=== PATIENT | female | born 1950 | race Caucasian/White ===

== ENCOUNTER 2019-01-19 13:13 | Inpatient (IN) ==
[2019-01-19] MEDS ORDERED: ROCEPHIN 1 GM in NS 50 ML IV ONE (13:35)
[2019-01-19] MEDS ORDERED: NS 500 ML IV ONE (13:36)
[2019-01-19] MEDS ORDERED: NS 1,000 ML IV ONE ×2 (13:36)
--- NOTE | 2019-01-19 13:51 | Diag Imaging Result Doc PS360 ---
EXAM: CHEST-1 VIEW 01/19/2019 HISTORY: productive cough TECHNIQUE: AP portable upright at 1340 COMMENT: The inspiration is less optimal than on 08/27/2016. There is some platelike opacity in the lingula which was not previously present. Otherwise are has been no significant change. IMPRESSION: Minimal lingular atelectasis. Electronically signed by Shyam Gant 01/19/2019 1:48 PM
[2019-01-19 14:01] LABS: INR 1.28; PROTIME 16.2 Seconds (11.0-16.0)
[2019-01-19 14:02] LABS: BASO# 0.02 X1000 (0.0-0.2); BASO% 0.1 % (0.0-0.8); EOS# 0.05 X1000 (0.0-0.7); EOS% 0.2 % (0.0-10.0); HEMATOCRIT 34.9 % (37.0-47.0); HEMOGLOBIN 11.6 g/dL (12.0-16.0); IMM GRAN# 0.84 X1000 (0.0-0.04); IMM GRAN% 2.7 % (0.0-0.5); LYMPH# 0.93 X1000 (1.2-3.4); MCH 29.1 PG (27-31); MCHC 33.2 g/dL (33-37); MCV 87.5 FL (81-99); MONO# 1.06 X1000 (0.11-0.59); MONO% 3.4 % (1.7-9.3); MPV 12.4 FL (7.4-10.4); NEUT# 28.52 X1000 (1.4-6.5); NEUT% 90.6 % (42.2-75.2); PLT 153 X1000 (130-400); PTT 27.4 Seconds (22.3-41.8); RBC 3.99 XMIL (4.2-5.4); RDW 14.3 % (11.5-14.5); WBC 31.42 X1000 (4.8-10.8)
[2019-01-19 14:12] LABS: ALB/GLOB RATIO 1.5; CALCIUM 7.3 mg/dL (8.8-10.2); CREATININE 4.8 mg/dL (0.5-0.9); POTASSIUM 3.5 mmol/L (3.5-5.1); TOTAL BILIRUBIN 0.56 mg/dL (0.20-1.00)
[2019-01-19 14:40] LABS: BANDS 3 % (0-1); LYMPHS 4 % (21-51); MONO 1 % (1-9); SEGS 92 % (42-75)
[2019-01-19] MEDS: LEVOPHED 8 MG in D5 1/2 NS 250 ML IV SCH (14:50)
--- NOTE | 2019-01-19 16:14 | Diag Imaging Result Doc PS360 ---
EXAM: CT THORAX W/O CONTRAST 01/19/2019 HISTORY: pna, septic shock TECHNIQUE: This exam was performed using automated exposure control, adjustment of mA or kV according to patient size, and/or use of iterative reconstruction technique. COMMENT: There are no previous studies available for comparison. There is mild groundglass opacity in the mid left upper lobe on image 32. There are platelike opacities in the lingula and the posterior lower lobes with denser consolidation in the posterior costophrenic sulcus of the left lower lobe. There is a similar but less extensive opacity on the right side. There are no abnormal fluid collections. There is a large hiatal hernia. There is an apparent cyst on image 98 and the right hepatic lobe. There are spondylotic changes in the thoracic and lumbar spine. There has been cholecystectomy. There is no definite evidence of acute disease in the visualized portion of the abdomen. IMPRESSION: Bibasilar atelectasis versus pneumonia. Hiatal hernia. Electronically signed by Shyam Gant 01/19/2019 4:11 PM
[2019-01-19] MEDS ORDERED: ZOFRAN IV PRN (16:15)
[2019-01-19] MEDS ORDERED: DUONEB (A & A) INH PRN (16:15)
[2019-01-19 16:18] LABS: AGAP 25; BUN 67 mg/dL (8-22); CALCIUM 7.3 mg/dL (8.8-10.2); CHLORIDE 84 mmol/L (98-107); COSMO 270; GLUCOSE 114 mg/dL (70-104); POTASSIUM 3.4 mmol/L (3.5-5.1); SODIUM 124 mmol/L (136-145); TCO2 15 mmol/L (25-35)
[2019-01-19 16:19] LABS: CREATININE 4.9 mg/dL (0.5-0.9)
[2019-01-19] MEDS: MERREM 500 MG in NS 50 ML IV SCH (16:51)
[2019-01-19] MEDS: NS 1,000 ML IV SCH (16:51)
[2019-01-19] MEDS: NORCO-7.5 PO PRN (17:00)
--- NOTE | 2019-01-19 17:03 | EKG Report ---
Test Performed on : 01/19/2019 1:33:49 PM Test Reason : ED. NO EKG ORDER FOR MUSE Blood Pressure : / mmHG Vent. Rate : 093 BPM Atrial Rate : 093 BPM P-R Int : 128 ms QRS Dur : 094 ms QT Int : 390 ms P-R-T Axes : 024 -39 030 degrees QTc Int : 484 ms Normal sinus rhythm. Left axis deviation Minimal voltage criteria for LVH, may be normal variant Abnormal ECG When compared with ECG of 27-AUG-2016 11:03, premature ventricular complexes. are no longer present T wave amplitude has decreased in Anterolateral leads Unconfirmed Result
[2019-01-19] MEDS ORDERED: TEFLARO 300 MG in NS 250 ML IV SCH (17:30)
--- NOTE | 2019-01-19 17:58 | HISTORY AND PHYSICAL ---
CHIEF COMPLAINT: Fever, cough, and weakness. HISTORY OF PRESENT ILLNESS: Ms. Montoya is a 68-year-old female who carries a past medical history of hypertension, asthma, COPD, GERD, arthritis, and gout, who reports that for the past week she has seen her primary care physician and her nurse emergency for workup for pneumonia. She has been treated with Cipro. She recently had a chest CT as well as an echo. Workup in her family care provider's office today. X-ray showed pneumonia with a high white count. She was sent to the ED. She was found to be extremely hypotensive and initiated on the sepsis protocol, started on broad-spectrum antibiotics. Initial chest x-ray here shows atelectasis. However, her white count is 31. Sodium was 122, acute renal failure with a BUN of 69 and creatinine of 4.8. She was hypotensive and initiated on Levophed after 3 L bolus. Surprisingly, her lactate level is negative. We will continue with the sepsis protocol, broad-spectrum antibiotics, and aggressive IV hydration. Patient appears to be severely dehydrated. Per family at bedside, she has only taken maybe in a full Gatorade the whole week and half of a half of a peanut butter sandwich, and a couple of sips of chicken noodle soup. She has been admitted to the ICU, and is going to continue on Levophed drip and broad-spectrum antibiotics. PAST MEDICAL HISTORY: 1. Hypertension. 2. Asthma. 3. COPD. 4. Gastroesophageal reflux disease. 5. Arthritis. 6. Gout. PAST SURGICAL HISTORY: 1. Partial hysterectomy with ovaries removed. 2. Appendectomy. SOCIAL HISTORY: She is retired. She is a . She has 2 children. No alcohol, tobacco, or illicit drug use. She had her asthma and COPD from secondhand smoke. Her father was a smoker as well as her . ALLERGIES: To Augmentin causes nausea and vomiting. HOME MEDICATIONS: 1. Ventolin inhaler. 2. Fosamax. 3. Allopurinol. 4. Abilify. 5. Atorvastatin and calcium. 6. Celecoxib. 7. Advair Diskus. 8. Trelegy. 9. Monopril. 10. Lasix. 11. Gabapentin. 12. Guaifenesin. 13. Singulair. 14. Potassium. 15. Zoloft. 16. Theophylline. 17. Vistaril. 18. Triamterene. 19. Hydrochlorothiazide. PHYSICAL EXAMINATION: VITAL SIGNS: Temperature 97.3 degrees, heart rate 85, respirations 21, blood pressure is 98/57 and O2 is 99%. GENERAL: Ms. Montoya is an ill-appearing 68-year-old female who is lying on the stretcher in the ER in Trendelenburg. HEENT: Atraumatic, normocephalic. PERRL. NECK: Supple. Trachea midline. Mucous membranes are extremely dry. CV: S1-S2 appreciated. No murmurs, gallops, or rubs noted. RESPIRATORY: Lung sounds relatively clear/ she is bilaterally decreased in the bases. GI: Abdomen is flat, soft, nontender, and nondistended. Positive bowel sounds 4 quadrants. EXTREMITIES: Lower extremities with trace edema. NEUROLOGIC: No focal deficits noted. LABORATORY DATA: White count 31, hemoglobin and hematocrit 11 and 34, and platelet count 153,000. Chemistry: Sodium 122, potassium 3.5, BUN 69, creatinine 4.8, blood glucose is 131, AST 33, alkaline phosphatase 128, and plasma lactate 1.6. Repeat BMP after 3 L bolus. Sodium was 124, potassium 3.4, BUN 67, and creatinine 4.9. DIAGNOSTIC DATA: Chest CT bibasilar atelectasis versus pneumonia. Hiatal hernia. ASSESSMENT AND PLAN: 1. Sepsis rule in for pneumonia. We will continue with aggressive IV hydration. Follow the sepsis protocol. Broad-spectrum antibiotics, aggressive pulmonary toilet, and bronchodilators. We will continue on Levophed for hypotension. Blood pressures were in the 50s/30s to 70s/40s. 2. Failed outpatient treatment for pneumonia, see #1. The patient was being treated outpatient with Cipro for pneumonia. 3. Hypertension. We will hold any antihypertensive. Patient has a Levophed drip. 4. COPD asthma from secondhand smoke. The patient was never a smoker, however, her father and were both smokers. We will continue with bronchodilators. 5. Arthritis. 6. Gout. 7. Acute renal failure secondary to dehydration. The patient did have a CT with contrast this past week. We will continue with aggressive IV hydration. Recheck her renal function in the morning. Consult Dr. Lee if needed in as well as renal ultrasound if needed if no improvement. 8. Hyponatremia. We will continue to trend, probably secondary to dehydration. 9. Mild hypokalemia. Continue to monitor. 10. Further recommendations to follow physician evaluation, laboratory and diagnostic data. Dictated by COURTNEY Smith for Alvin Guzman MD Addendum: Patient seen and examined by myself. Agree with CYCLE REPAIRER note. It reflects my assessment and plan. Patient is being admitted to hospital for septic shock secondary to pneumonia so will start IV fluids and broad spectrum antibiotics and monitor patient in ICU. cc: Alvin Guzman MD Zz Unknown MTDD
[2019-01-19] MEDS: DUONEB (A & A) INH SCH ×3 (19:44→23:13)
[2019-01-19 20:41] LABS: URINE SOURCE CATH
[2019-01-19 20:43] LABS: BILIRUBIN URINE NEGATIVE (NEGATIVE); BLOOD URINE MODERATE (NEGATIVE); COLOR ORANGE; GLUCOSE URINE NEGATIVE (NEGATIVE); KETONE URINE NEGATIVE (NEGATIVE); LEUKOCYTES URINE LARGE (NEGATIVE); NITRITE URINE NEGATIVE (NEGATIVE); PH URINE 6.5; PROTEIN URINE 200 mg/dL (NEGATIVE); SP GRAVITY URINE 1.009; TURBIDITY URINE TURBID (CLEAR); UROBILINOGEN URINE NORMAL (NORMAL)
[2019-01-19 20:46] LABS: UR EPITHELIAL CELLS <10 /HPF (<10); URINE BACTERIA NEGATIVE /HPF; URINE RBC 20-40 /HPF (<10); URINE WBC TNTC /HPF (<10)
[2019-01-19 20:52] LABS: URINE YEAST NONE SEEN
[2019-01-19 20:53] LABS: URINE CASTS NONE SEEN
[2019-01-20] MEDS: NS 1,000 ML IV SCH ×4 (00:45→19:53)
[2019-01-20] MEDS: MERREM 500 MG in NS 50 ML IV SCH (00:47)
[2019-01-20] MEDS: LEVOPHED 8 MG in D5 1/2 NS 250 ML IV SCH ×3 (02:21→22:25)
[2019-01-20] MEDS: DUONEB (A & A) INH SCH ×6 (03:35→23:13)
[2019-01-20 06:33] LABS: BASO# 0.02 X1000 (0.0-0.2); BASO% 0.1 % (0.0-0.8); EOS# 0.07 X1000 (0.0-0.7); EOS% 0.2 % (0.0-10.0); HEMATOCRIT 33.9 % (37.0-47.0); HEMOGLOBIN 11.4 g/dL (12.0-16.0); IMM GRAN# 0.63 X1000 (0.0-0.04); IMM GRAN% 1.7 % (0.0-0.5); LYMPH# 0.75 X1000 (1.2-3.4); MCH 29.5 PG (27-31); MCHC 33.6 g/dL (33-37); MCV 87.6 FL (81-99); MONO# 1.69 X1000 (0.11-0.59); MONO% 4.5 % (1.7-9.3); MPV 11.6 FL (7.4-10.4); NEUT% 91.5 % (42.2-75.2); PLT 179 X1000 (130-400); RBC 3.87 XMIL (4.2-5.4); RDW 14.7 % (11.5-14.5); WBC 37.96 X1000 (4.8-10.8)
[2019-01-20 06:58] LABS: ALB/GLOB RATIO 1.1; ALBUMIN 2.6 g/dL (3.5-5.0); CREATININE 4.4 mg/dL (0.5-0.9); POTASSIUM 3.2 mmol/L (3.5-5.1); TOTAL BILIRUBIN 0.41 mg/dL (0.20-1.00)
--- NOTE | 2019-01-20 07:22 | Diag Imaging Result Doc PS360 ---
EXAM: CHEST-PORTABLE INDICATION: Pneumonia TECHNIQUE: One view COMPARISON: 01/19/2019 FINDINGS: Lung volumes are low. There is increased atelectasis at the left lower lung zone. No other new consolidation is identified. Cardiac silhouette is stable. IMPRESSION: Lower lung volumes and increased atelectasis at the left lower lung zone. Electronically signed by Nasir Monroy 01/20/2019 7:19 AM
--- NOTE | 2019-01-20 07:43 | CONSULTATION ---
DATE OF CONSULTATION: 01/20/2019 CONCLUSION: The patient has a gram-negative rowena bacteremia. This may have originated from a pneumonia or from a urinary tract infection. RECOMMENDATIONS: I am going to discontinue ceftaroline and meropenem and place the patient on cefepime, the dose of which will be modified because of the patient's renal failure. DISCUSSION: The patient is unable provide a history. No family member is present. According to the information in the computer, the patient was admitted to the hospital with fever, cough, and weakness. Her CBC shows a white count of 37,960, hemoglobin 11.4, and platelet count 179,000. Creatinine is 4.4. GFR is 10. Alkaline phosphatase is 149. The urinalysis showed white cells but no bacteria. Blood cultures are growing gram-negative rowena. CT scan of the chest shows bibasilar pneumonia versus atelectasis. Urine culture is pending. REVIEW OF SYSTEMS: Unable to be obtained from the patient. PAST MEDICAL HISTORY: Positive for hypertension, asthma, COPD, gastroesophageal reflux disease, arthritis, and gout. PAST SURGICAL HISTORY: Positive for hysterectomy and oophorectomy, and appendectomy. SOCIAL HISTORY: The patient is a . She has 2 children. She does not drink alcoholic beverages smoke tobacco, or use illicit drugs. It is felt that the patient has asthma and COPD due to secondhand smoke. Both her father and her were smokers. ALLERGIES: Drug adverse reaction is to Augmentin. It causes nausea and vomiting. HOME MEDICATIONS: Include Ventolin inhaler, Fosamax, allopurinol, Abilify, atorvastatin, celecoxib, Advair Diskus, Trelegy, Monopril, Lasix, gabapentin, Singulair, Zoloft, theophylline, Vistaril, triamterene, and hydrochlorothiazide. PHYSICAL EXAMINATION: Vital Signs: Temperature is 99 degrees, pulse 99, respirations 17, blood pressure is 107/55. The patient is 5 feet 4 inches tall and weighs 204 pounds. General: This is an ill-appearing, elderly female. She is in no acute distress. Head, Eyes, Ears, Nose, and Throat: She can hear my spoken words and see near objects. She does not have any white coating on her tongue. Neck: No meningismus. Lungs: Clear to auscultation. Cardiovascular: Heart rate is regular. Abdomen: Soft and not tender. Neurologic: The patient is awake. She did follow requests to move her extremities but when I asked her a question, I could not understand what she was saying in response. The patient does not have a tremor. Extremities: No erythema. Thank you for the consult. ADDENDUM: I just found information from the hospital that sent the patient to our hospital. The patient had a ESBL producing E. coli. I discontinued cefepime and started ertapenem the dose of which was modified because of the patient's renal failure. cc: Kyle Alvarez MD MTDD
--- NOTE | 2019-01-20 07:53 | INFECTIOUS DISEASE CONSULT REP ---
DATE: 01/20/2019 ADDENDUM: I just have found some information about the patient at [facility] where she was prior to coming to [facility]. Her urine grew out greater than 100,000 colony-forming units of an extended spectrum beta lactamase producing E coli. It was susceptible to imipenem. I have started the patient on ertapenem. The dose has been modified because of the patient's renal failure. cc: Kyle Alvarez MD
[2019-01-20] MEDS: INVANZ 0.5 GM in NS 50 ML IV SCH (08:20)
[2019-01-20] MEDS: NORCO-7.5 PO PRN (09:21)
--- NOTE | 2019-01-20 09:41 | PROGRESS NOTE ---
DATE: 01/20/2019 SUBJECTIVE: Patient reports feeling fine. According to nursing staff, she continues to require some vasopressors. No other issues noted. OBJECTIVE: Vital Signs: Temperature 98.5 degrees, heart rate 92, respiratory 19, blood pressure 108/60, O2 saturation 95% on 4 L nasal cannula. General: This is a chronically ill-appearing, 68-year-old female, lying in bed, in no acute distress. Cardiovascular: S1, S2 heard. No murmurs, gallops, or rubs. Regular rate and rhythm. Respiratory: Minimal coarse breath sounds noted in both pulmonary bases. Patient is not using any accessory muscles or having work of breathing. Abdomen: Soft. Nontender to palpation. Bowel sounds present. No organomegaly. No signs of peritoneal irritation. Extremities: Mild lower extremity edema. Neurological: Patient is alert and oriented x3. Moves 4 extremities. LABORATORY DATA: White cell count 37.96, hemoglobin 11.4, hematocrit 33.9, platelets 179,000. Sodium 124, potassium 3.2, creatinine 4.4, calcium 7.0. In's and outs indicate urine output of 1625 mL of urine. ASSESSMENT AND PLAN: 1. Septic shock secondary to pneumonia and extended-spectrum beta-lactamase Escherichia coli urinary tract infection. The patient continues to require Levophed, in this case 17 mcg. Initial report from blood cultures indicate gram-negative bacteremia. Previous records from [facility] indicated that she had a urine culture positive for Escherichia coli, extended-spectrum beta-lactamase positive. We have consulted Dr. Alvarez from Infectious Disease. Antibiotics have been changed to ertapenem, renally dosed. We will continue to monitor. 2. Bilateral pneumonia. We will continue with current antibiotic treatment and breathing treatments as well. 3. Hypertension. Of course, all blood pressure medication has been held. We will continue to monitor. 4. Chronic obstructive pulmonary disease/asthma from secondhand smoke. We will continue with DuoNeb. 5. Arthritis, gout. Stable. We will provide pain medication as needed. 6. Acute kidney injury. At this point, this could be multifactorial. The patient is responding to IV fluids. She had a renal function that was normal from a couple years ago. Urine output is okay. We will continue to monitor. 7. Hyponatremia, most likely secondary to dehydration, also some sort of acute tubular necrosis, but in any case, we will continue to monitor BMP daily. 8. Disposition. We will continue to monitor this patient closely in the intensive care unit. cc: Alvin Guzman MD
--- NOTE | 2019-01-20 09:52 | Diag Imaging Result Doc PS360 ---
EXAM: US ABDOMEN-COMPLETE INDICATION: phylicia, gram negative bacteremia COMPARISON: None. FINDINGS: There has been a prior cholecystectomy. The common bile duct is normal in diameter. The liver is grossly unremarkable. Portal venous flow is hepatopetal. The pancreas is partially obscured by bowel gas. The visualized portion is unremarkable. The aorta and IVC are partially obscured. Visualized portions are essentially unremarkable. The spleen is unremarkable. The kidneys are grossly unremarkable. IMPRESSION: Essentially unremarkable abdominal ultrasound. Electronically signed by Nasir Monroy 01/20/2019 9:50 AM
[2019-01-20] MEDS ORDERED: TYLENOL PR PRN (21:37)
[2019-01-21] MEDS: NS 1,000 ML IV SCH ×4 (01:13→20:49)
[2019-01-21] MEDS: DUONEB (A & A) INH SCH ×6 (03:51→23:30)
[2019-01-21 06:01] LABS: BASO# 0.02 X1000 (0.0-0.2); BASO% 0.1 % (0.0-0.8); EOS# 0.04 X1000 (0.0-0.7); EOS% 0.2 % (0.0-10.0); HEMATOCRIT 33.6 % (37.0-47.0); HEMOGLOBIN 11.3 g/dL (12.0-16.0); IMM GRAN# 0.29 X1000 (0.0-0.04); IMM GRAN% 1.1 % (0.0-0.5); LYMPH# 1.06 X1000 (1.2-3.4); LYMPH% 4.1 % (20.5-51.1); MCH 29.4 PG (27-31); MCHC 33.6 g/dL (33-37); MCV 87.5 FL (81-99); MONO# 1.43 X1000 (0.11-0.59); MONO% 5.5 % (1.7-9.3); MPV 11.2 FL (7.4-10.4); NEUT# 23.13 X1000 (1.4-6.5); PLT 180 X1000 (130-400); RBC 3.84 XMIL (4.2-5.4); RDW 14.6 % (11.5-14.5); WBC 25.97 X1000 (4.8-10.8)
[2019-01-21 06:21] LABS: ALBUMIN 1.9 g/dL (3.5-5.0); CALCIUM 7.1 mg/dL (8.8-10.2); CREATININE 3.8 mg/dL (0.5-0.9); PHOSPHORUS 3.7 mg/dL (2.7-4.5); POTASSIUM 3.3 mmol/L (3.5-5.1)
[2019-01-21 07:16] LABS: LYMPHS 6 % (21-51); MONO 2 % (1-9); SEGS 90 % (42-75)
[2019-01-21] MEDS ORDERED: CALCIUM GLUCONATE 2 GM in NS 100 ML IV ONE (07:47)
[2019-01-21] MEDS: INVANZ 0.5 GM in NS 50 ML IV SCH (08:51)
[2019-01-21] MEDS: POTASSIUM CHLORIDE 20 MEQ/SWI 20 MEQ/100 ML IVPB IV SCH ×2 (08:52→11:31)
[2019-01-21] MEDS: CALTRATE 600 + D PO SCH ×2 (09:15→20:49)
[2019-01-21] MEDS: LEVOPHED 8 MG in D5 1/2 NS 250 ML IV SCH (09:43)
--- NOTE | 2019-01-21 10:44 | PROGRESS NOTE ---
DATE: 01/21/2019 SUBJECTIVE: The patient reports feeling fine. According to nursing staff, patient continues to require Levophed but definitely less amount of this medication. No other issues noted. As per nursing staff overnight, patient reports feeling okay, eating okay as well. OBJECTIVE: Vital Signs: Temperature 97.3 degrees, heart rate 85, respiratory rate 16, blood pressure 122/86, O2 saturation 100% 2 L nasal cannula. General: This is a chronically ill- appearing, 68-year-old female lying in bed, in no acute distress. Cardiovascular: S1, S2 heard. No murmurs, gallops, or rubs. Regular rate and rhythm. Respiratory: Minimal coarse breath sounds noted in both pulmonary bases. Patient not using any accessory muscles or having work of breathing. Abdomen: Soft, nontender to palpation. Bowel sounds present. No organomegaly. No signs of peritoneal irritation. Extremities: Mild lower extremity edema. Neurological: Patient alert and oriented x3. Moves all 4 extremities. LABORATORY DATA: White cell count 25.97, hemoglobin 11.3, hematocrit 33.6, platelets 180,000. Sodium 134, potassium 3.3, chloride 102, bicarbonate 14, calcium 7.1. ASSESSMENT AND PLAN: 1. Septic shock secondary to pneumonia and extended spectrum beta-lactamase Escherichia coli urinary tract infection/bacteremia. Patient continues to require Levophed at this point at 70 marked mcg per minute. At this point, the blood culture is still pending, indicates gram- negative bacteremia and also gram-negative rods in the urine. As we mentioned before, because previous records from [facility] indicate that the patient has a urine culture positive for extended spectrum beta-lactamase Escherichia coli, she is receiving ertapenem as per Dr. Kyle Alvarez' recommendation. We will continue to check CBC. Actually, there is an improvement from 30,000 white cell count yesterday to 25,000 today. We will continue to monitor this patient closely in the intensive care unit. 2. Bilateral pneumonia. We will continue with the current antibiotic coverage as well as DuoNeb breathing treatments every 4 hours as scheduled. 3. Hypertension. Of course, this patient is in septic shock and all blood pressure medication has been held. 4. Chronic obstructive pulmonary disease/asthma for secondary hand smoke. Will continue with DuoNeb every 4 hours. 5. Arthritis and gout, stable. Will provide pain medication as needed. 6. Acute kidney injury with metabolic acidosis, multifactorial. Patient is responding to IV fluids. The creatinine is getting better. Yesterday, it was 4.4 and today is 3.8. We will continue to monitor. 7. Hyponatremia, almost resolved. We will continue to monitor. DISPOSITION: We will continue to monitor this patient closely in the intensive care unit. cc: Alvin Guzman MD
--- NOTE | 2019-01-21 18:48 | INFECTIOUS DISEASE PROGRESS NO ---
DATE: 01/21/2019 PRESENT ILLNESS: The patient has an extended spectrum beta lactamase producing Escherichia coli urinary tract infection and an associated bacteremia. MEDICATIONS: The patient is on ertapenem 500 mg IV daily. The dose has been decreased because of the patient's renal failure. PHYSICAL EXAMINATION: Vital Signs: Temperature earlier was 102, it is 98 now, pulse 87, respirations 18, blood pressure 113/57. General: This is an ill-appearing elderly female. She is very lethargic. Head/eyes/ears/nose/throat: No drainage noted from the nose or ears. Neck: No pain with movement. Lungs: Clear to auscultation. Cardiovascular: Regular heart rate. Abdomen: Abdomen and flanks soft and nontender. Neurologic: The patient is lethargic. She did not follow request to move her extremities LAB AND X-RAY: The patient's abdominal ultrasound was unremarkable. The patient's urine and blood are growing extended spectrum beta lactamase producing Escherichia coli. The patient's creatinine is 3.8. GFR is 12. CBC shows a white count of 25,970, hemoglobin 11.3, and platelet count of a 188,000. ASSESSMENT AND PLAN: The patient has an extended spectrum beta lactamase producing Escherichia coli urinary tract infection and an associated bacteremia. My plan is to treat the patient for a total of 14 days with ertapenem in a reduced dose because of the patient's renal failure. Day #1 will be the first day that the patient's repeat blood cultures are sterile. I plan on repeating the patient's blood cultures today. COMORBIDITIES: The patient is elderly. She has gastroesophageal reflux disease, and chronic obstructive pulmonary disease, asthma, and gout. cc: Kyle Alvarez MD
[2019-01-22] MEDS: NS 1,000 ML IV SCH ×4 (02:06→19:24)
[2019-01-22] MEDS: DUONEB (A & A) INH SCH ×6 (03:52→23:30)
[2019-01-22 06:43] LABS: BASO# 0.02 X1000 (0.0-0.2); BASO% 0.1 % (0.0-0.8); EOS# 0.08 X1000 (0.0-0.7); EOS% 0.5 % (0.0-10.0); HEMATOCRIT 26.8 % (37.0-47.0); HEMOGLOBIN 8.8 g/dL (12.0-16.0); IMM GRAN# 0.17 X1000 (0.0-0.04); IMM GRAN% 1.1 % (0.0-0.5); LYMPH# 1.03 X1000 (1.2-3.4); LYMPH% 6.8 % (20.5-51.1); MCH 28.9 PG (27-31); MCHC 32.8 g/dL (33-37); MCV 87.9 FL (81-99); MONO# 0.66 X1000 (0.11-0.59); MONO% 4.4 % (1.7-9.3); MPV 10.3 FL (7.4-10.4); NEUT% 87.1 % (42.2-75.2); PLT 174 X1000 (130-400); RBC 3.05 XMIL (4.2-5.4); WBC 15.06 X1000 (4.8-10.8)
[2019-01-22 06:48] LABS: ALBUMIN 1.9 g/dL (3.5-5.0); CALCIUM 7.4 mg/dL (8.8-10.2); CREATININE 2.9 mg/dL (0.5-0.9); PHOSPHORUS 4.3 mg/dL (2.7-4.5); POTASSIUM 3.2 mmol/L (3.5-5.1)
[2019-01-22 07:04] LABS: LYMPHS 12 % (21-51); MONO 6 % (1-9); SEGS 80 % (42-75)
[2019-01-22] MEDS: INVANZ 0.5 GM in NS 50 ML IV SCH (07:46)
[2019-01-22] MEDS ORDERED: CALCIUM GLUCONATE 2 GM in NS 100 ML IV ONE (08:00)
[2019-01-22] MEDS: POTASSIUM CHLORIDE 20 MEQ/SWI 20 MEQ/100 ML IVPB IV SCH ×2 (08:19→10:30)
--- NOTE | 2019-01-22 08:26 | PROGRESS NOTE ---
DATE: 01/22/2019 SUBJECTIVE: Patient reports feeling fine. According to nursing staff, the patient is not requiring any vasopressors at this point. Clinically, this patient is feeling better. OBJECTIVE: Vital Signs: Temperature 97.9 degrees, heart rate 102, respiratory rate 20, blood pressure 108/69, O2 saturation 98% 3 L nasal cannula. General Examination: This is a chronically ill-appearing, 68-year-old female lying in bed, in no acute distress. Cardiovascular exam: S1, S2 heard. Tachycardic but no murmurs, gallops, or rubs. Regular rate and rhythm. Respiratory: Coarse breath sounds still noted in both pulmonary bases. Patient not using any accessory muscles or having work of breathing. Abdomen: Soft. Nontender to palpation. Bowel sounds present. No organomegaly. Extremities: No clubbing, cyanosis. Mild lower extremity edema. Neurological: Patient alert and oriented x3. Moves 4 extremities. LABORATORY DATA: White cell count 15.06, hemoglobin 8.9, hematocrit 26.0, platelets 174,000 with BMP that shows potassium 3.2, sodium 130, calcium 7.4. ASSESSMENT AND PLAN: 1. Septic shock secondary to pneumonia/ ESBL E. coli urinary tract infection/bacteremia. The patient fortunately is not requiring any more vasopressors. Not spiking any fever. Her white cell count is getting better at 15,000. At this point, we will continue with ertapenem as per ID recommendations. We will continue to monitor. 2. Bilateral pneumonia. We will continue with DuoNeb every 4 hours and current antibiotic coverage. 3. Hypertension. All antihypertensive medication has been held. We will continue to monitor. 4. Chronic obstructive pulmonary disease. Slight asthma for secondhand smoke. We will continue with DuoNeb every 4 hours as scheduled. 5. Arthritis and gout, stable. We will continue with pain medications as needed. 6. Acute kidney injury with metabolic acidosis. Renal function continues to improve. Of course, bicarbonate is still low. She continues to improve. 7. Electrolyte derangement. We will replete potassium and calcium today. 8. Disposition. We are going to transfer this patient to [facility] today. cc: Alvin Guzman MD [facility]
[2019-01-22] MEDS: CALTRATE 600 + D PO SCH ×3 (10:32→20:05)
[2019-01-22] MEDS: NORCO-7.5 PO PRN (19:23)
[2019-01-23] MEDS: NS 1,000 ML IV SCH ×3 (01:51→17:23)
[2019-01-23] MEDS: DUONEB (A & A) INH SCH ×6 (03:18→23:18)
[2019-01-23 06:20] LABS: BASO# 0.01 X1000 (0.0-0.2); BASO% 0.1 % (0.0-0.8); EOS# 0.13 X1000 (0.0-0.7); EOS% 1.2 % (0.0-10.0); HEMATOCRIT 27.8 % (37.0-47.0); IMM GRAN# 0.15 X1000 (0.0-0.04); IMM GRAN% 1.4 % (0.0-0.5); LYMPH# 1.06 X1000 (1.2-3.4); LYMPH% 9.9 % (20.5-51.1); MCH 28.8 PG (27-31); MCHC 32.4 g/dL (33-37); MCV 88.8 FL (81-99); MONO# 0.52 X1000 (0.11-0.59); MONO% 4.9 % (1.7-9.3); MPV 9.9 FL (7.4-10.4); NEUT# 8.85 X1000 (1.4-6.5); NEUT% 82.5 % (42.2-75.2); PLT 211 X1000 (130-400); RBC 3.13 XMIL (4.2-5.4); RDW 15.5 % (11.5-14.5); WBC 10.72 X1000 (4.8-10.8)
[2019-01-23 06:49] LABS: ALBUMIN 2.2 g/dL (3.5-5.0); CALCIUM 8.6 mg/dL (8.8-10.2); CREATININE 2.1 mg/dL (0.5-0.9); PHOSPHORUS 5.6 mg/dL (2.7-4.5); POTASSIUM 3.7 mmol/L (3.5-5.1)
--- NOTE | 2019-01-23 07:37 | PROGRESS NOTE ---
DATE: 01/23/2019 SUBJECTIVE: The patient reports feeling weak but not spiking any fever. Definitely feeling much better in comparing with admission. No acute issues noted as per nursing staff overnight. OBJECTIVE: Vital Signs: Temperature 97.5 degrees, heart rate 94, respiratory rate 24, blood pressure 117/59, O2 saturation 99% on 3 L nasal cannula. General Examination: This is a chronically ill-appearing, 68-year-old, female lying in bed, in no acute distress. Cardiovascular Examination: S1 and S2 heard. No murmurs, gallops, or rubs. Regular rate and rhythm. Respiratory Examination: Minimal coarse sounds noted in both pulmonary bases. Patient is not using any accessory muscles or having work of breathing. Abdomen: Soft. Nontender to palpation. Bowel sounds present. No organomegaly. Extremities: No clubbing, cyanosis. Mild lower extremity edema noted. Neurological Examination: The patient is alert and oriented x3. Moves 4 extremities. Laboratory Data: White cell count is 10.72, hemoglobin 9.0, hematocrit 27.8, platelets 211,000. BMP remarkable for a creatinine of 2.1, with carbon dioxide 16, calcium 8.6, phosphorus 5.6. ASSESSMENT AND PLAN: 1. Septic shock secondary to bilateral pneumonia/extended-spectrum B-lactamase Escherichia coli bacteremia. Clinically, this patient is feeling better. Not spiking any more fever. Not requiring any vasopressors. White cell count is back to normal. At this point, we will continue with ertapenem as per infectious disease recommendations. 2. Bilateral pneumonia. Patient is on DuoNeb every 4 hours scheduled and also ertapenem as well. We will continue with the same management. 3. Hypertension. Of course, all the antihypertensive medication has been held because of the septic shock. Her vitals indicate blood pressure between 100s-110 so I do not think we need to restart any medication yet. 4. Chronic obstructive pulmonary disease and also secondary asthma secondary to secondhand smoke. We will continue with DuoNeb every 4 hours as scheduled. 5. Arthritis and gout, stable. We will continue with pain medication as needed. 6. Acute kidney injury, metabolic acidosis. Renal function continues to improve. Today, the creatinine is 2.1. We will continue to monitor. 7. Electrolyte derangements. We will continue to check, to replenish calcium. Potassium is normal today. 8. Disposition. I think this patient is stable today so we are going to send her to a regular room today. cc: Alvin Guzman MD
[2019-01-23] MEDS: CALTRATE 600 + D PO SCH ×2 (08:55→20:42)
[2019-01-23] MEDS: INVANZ 0.5 GM in NS 50 ML IV SCH (08:56)
[2019-01-23] MEDS: NORCO-7.5 PO PRN (20:42)
[2019-01-24] MEDS: NS 1,000 ML IV SCH ×3 (01:17→17:51)
[2019-01-24] MEDS: DUONEB (A & A) INH SCH ×6 (02:50→23:05)
[2019-01-24 06:03] LABS: BASO# 0.01 X1000 (0.0-0.2); BASO% 0.1 % (0.0-0.8); EOS# 0.14 X1000 (0.0-0.7); EOS% 1.6 % (0.0-10.0); HEMATOCRIT 28.2 % (37.0-47.0); HEMOGLOBIN 9.1 g/dL (12.0-16.0); IMM GRAN# 0.13 X1000 (0.0-0.04); IMM GRAN% 1.5 % (0.0-0.5); LYMPH# 1.26 X1000 (1.2-3.4); LYMPH% 14.1 % (20.5-51.1); MCHC 32.3 g/dL (33-37); MCV 89.8 FL (81-99); MONO# 0.41 X1000 (0.11-0.59); MONO% 4.6 % (1.7-9.3); MPV 9.6 FL (7.4-10.4); NEUT% 78.1 % (42.2-75.2); PLT 201 X1000 (130-400); RBC 3.14 XMIL (4.2-5.4); RDW 15.4 % (11.5-14.5); WBC 8.95 X1000 (4.8-10.8)
[2019-01-24 06:26] LABS: ALBUMIN 2.2 g/dL (3.5-5.0); CALCIUM 8.2 mg/dL (8.8-10.2); CREATININE 1.5 mg/dL (0.5-0.9); PHOSPHORUS 4.8 mg/dL (2.7-4.5); POTASSIUM 3.5 mmol/L (3.5-5.1)
[2019-01-24] MEDS: CALTRATE 600 + D PO SCH ×2 (08:36→20:09)
[2019-01-24] MEDS: INVANZ 0.5 GM in NS 50 ML IV SCH (08:36)
--- NOTE | 2019-01-24 15:02 | INFECTIOUS DISEASE PROGRESS NO ---
DATE: 01/24/2019 PRESENT ILLNESS: Patient has an extended spectrum beta lactamase producing Escherichia coli urinary tract infection with an associated bacteremia. MEDICATIONS: The patient is on ertapenem at a dose of 500 mg IV daily. PHYSICAL EXAMINATION: Vital Signs: Temperature is 98.4 degrees, pulse 95, respirations 20, blood pressure 129/65. General: This is an ill-appearing elderly female. She is lethargic but she did actually get up and walk a little bit today. Head/eyes/ears/nose/throat: She can hear my spoken words and see near objects. There was no white coating of her tongue. Neck: No pain with movement. Lungs: Clear to auscultation. Cardiovascular: Regular heart rate. Abdomen: Soft and nontender. Neurologic: As mentioned above. Earlier the patient stood up and walked. LAB AND X-RAY: There is no new radiographic study. CBC shows a white count of 8950, hemoglobin 9.1, platelet count 201,000. Creatinine is up to 1.5, and the GFR is 35. The patient's repeated blood cultures drawn on January 22 are both sterile. ASSESSMENT AND PLAN: Patient has an extended spectrum beta lactamase producing Escherichia coli urinary tract infection and bacteremia. Since the patient's kidney function is recovering, I am increasing the dose of ertapenem from 0.5 g to 1 g IV daily starting today. This will be day 2 of treatment with ertapenem with day 1 being the first day that the patient's blood cultures are negative. My plan is to treat the patient for a total of 14 days. She has 2 days done now and therefore she will need 12 more days. The dose of ertapenem has been increased to 1 g IV daily because of the increase in the GFR and decrease in the creatinine. COMORBIDITIES: The patient is elderly. She has gastroesophageal reflux disease, chronic obstructive pulmonary disease, asthma, and gout. cc: Kyle Alvarez MD
--- NOTE | 2019-01-24 16:57 | PROGRESS NOTE ---
DATE: 01/24/2019 SUBJECTIVE: Patient has no major complaints. She seems very weak and tired to me though but her family said she did fairly well with physical therapy a lot better than they anticipated but they are looking at rehab options. OBJECTIVE: Blood pressure 129/65, heart rate of 95, respiratory rate 20, temperature 98.4 degrees.Cardiovascular: Regular rate and rhythm. Pulmonary: Bilateral breath sounds clear auscultation. GI: Soft, nontender, nondistended. Bowel sounds are positive. LABORATORY DATA: White count 8, hemoglobin and hematocrit 9 and 28, platelets 201,000. Creatinine is down to 1.5. PROBLEM LIST: 1. Sepsis due to extended spectrum beta-lactamase Escherichia coli in pneumonia and blood. Plan is for 2 weeks of IV antibiotics. Her negative blood culture date is the day 1. 2. Bilateral pneumonia. She is on Invanz and duo nebs and all that kind of stuff. 3. Chronic obstructive pulmonary disease appears to be stable. Will continue treatment. 4. Acute kidney injury. Continues to improve so I think she probably still needs a little bit of fluid. I am just going to tone it down a bit because just for concerns over volume overload. DISPOSITION: She is going to need a PICC line. She is going to need IV antibiotics at rehab for 2 weeks and social work is working on this based on note here and we will continue with PT and continue to follow. cc: Galo Craft MD
[2019-01-24 17:52] LABS: INR 1.18; PROTIME 15.2 Seconds (11.0-16.0)
[2019-01-24] MEDS: NORCO-7.5 PO PRN (19:04)
[2019-01-24] MEDS ORDERED: INVANZ 1 GM/NS 1 GM/50 ML IVPB IV ONE (20:00)
[2019-01-24] MEDS ORDERED: INVANZ 1 GM/NS 1 GM/50 ML IVPB IV SCH (20:00)
[2019-01-25] MEDS: DUONEB (A & A) INH SCH ×3 (04:57→11:37)
[2019-01-25 05:51] LABS: BASO# 0.01 X1000 (0.0-0.2); BASO% 0.1 % (0.0-0.8); EOS# 0.17 X1000 (0.0-0.7); EOS% 1.9 % (0.0-10.0); HEMOGLOBIN 9.2 g/dL (12.0-16.0); IMM GRAN# 0.14 X1000 (0.0-0.04); IMM GRAN% 1.6 % (0.0-0.5); LYMPH# 1.28 X1000 (1.2-3.4); LYMPH% 14.6 % (20.5-51.1); MCH 28.5 PG (27-31); MCHC 31.7 g/dL (33-37); MCV 89.8 FL (81-99); MONO% 3.4 % (1.7-9.3); MPV 10.2 FL (7.4-10.4); NEUT# 6.85 X1000 (1.4-6.5); NEUT% 78.4 % (42.2-75.2); PLT 216 X1000 (130-400); RBC 3.23 XMIL (4.2-5.4); RDW 15.2 % (11.5-14.5); WBC 8.75 X1000 (4.8-10.8)
[2019-01-25 06:04] LABS: ALBUMIN 2.3 g/dL (3.5-5.0); CALCIUM 8.1 mg/dL (8.8-10.2); CREATININE 1.2 mg/dL (0.5-0.9); POTASSIUM 3.9 mmol/L (3.5-5.1)
[2019-01-25] MEDS: NS 1,000 ML IV SCH (08:14)
[2019-01-25] MEDS: CALTRATE 600 + D PO SCH (08:15)
[2019-01-25] MEDS ORDERED: NS 250 ML ONE (08:36)
--- NOTE | 2019-01-25 11:20 | DISCHARGE SUMMARY ---
ADMISSION DATE: 01/19/2019 DISCHARGE DATE: 01/25/2019 ADMISSION DIAGNOSES: 1. Sepsis, rule in pneumonia. 2. Failed outpatient treatment for pneumonia. 3. Hypertension. 4. Chronic obstructive pulmonary disease due to secondhand smoke and asthma. No exacerbation. 5. Arthritis. 6. Gout. 7. Acute kidney injury secondary to dehydration. 8. Hyponatremia. 9. Hypokalemia. DISCHARGE DIAGNOSES: 1. Sepsis due to extended-spectrum B-lactamase positive Escherichia coli urinary tract infection and extended-spectrum B-lactamase positive bacteremia. 2. Failed outpatient treatment for pneumonia. 3. Extended-spectrum B-lactamase positive bacteremia. 4. Chronic obstructive pulmonary disease, no exacerbation. 5. Acute kidney injury, resolved. 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 2. Dr. Alvarez with infectious disease. SURGERIES/PROCEDURES: Will have PICC line placement prior to discharge. HOSPITAL COURSE: Ms. Agustina Montoya is a 68-year-old, female with a medical history of hypertension, asthma, COPD, GERD, arthritis, gout. 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 Apparently, she was treated outpatient with Cipro. Was seen in her PCP's office with x-ray show pneumonia, elevated white blood cell count, and was recommended to come to the emergency department. She was hypotensive with a blood pressure of 56/36 and was initiated on a sepsis protocol. Started on broad-spectrum antibiotics and given aggressive IV fluid hydration. Initial chest x-ray shows atelectasis. White count was 31,000. She had a low sodium of 122. Acute kidney injury with a creatinine of 4.8. Despite the 3 L of normal saline bolus, she still had to be started on a Levophed drip as the blood pressure was not responsive. Per family report, she has had decreased p.o. intake for at least a week prior to presentation. Dr. Alvarez with infectious disease was consulted once the blood cultures came back as gram-negative bacteremia. Infectious disease, Dr. Alvarez, consulted after blood cultures showed gram-negative bacteremia and E. coli in the urine as well. Both ended up being ESBL positive. She was transferred to the ICU where she was eventually weaned off vasopressors and continued on her Invanz. Prior to discharge here, she will have a PICC line placed so she can continue on Invanz. Vitals have been stable. DISCHARGE VITAL SIGNS: Temperature 98.8 degrees, heart rate 93, respiratory rate 15, blood pressure 122/69, O2 saturation 99% on 2 L nasal cannula. DISCHARGE LABORATORY DATA: White blood cells 8000, hemoglobin 9, hematocrit 29, platelet count 216,000. Sodium 145, potassium 3.9, BUN 32, creatinine is 1.2, glucose 111, phosphorus is actually 5.0, and albumin is 2.3, calcium 8.1. Blood cultures from 01/19/2019, ESBL positive. Urine culture from a Avila catheter on 01/19/2019 was ESBL positive. Resistant to gentamicin, Levaquin, tobramycin, and Zosyn. Most recent blood cultures on 01/22/2019 are so far negative. They are still pending full growth. PERTINENT IMAGING: On 01/19/2019, chest x-ray, minimal lingular atelectasis. Chest CT without contrast, large hiatal hernia, cyst on the right hepatic lobe of the liver, bibasilar atelectasis versus pneumonia. Chest x-ray on the , lower lung volumes and increased atelectasis in the left lower lung zone. Then, 01/20/2019, abdominal ultrasound essentially unremarkable. EKG on the , normal sinus rhythm, rate of 93, QTc 484. DISCHARGE MEDICATIONS: 1. Invanz 1 g IV daily for 12 days. 2. Norvasc 5 mg p.o. twice daily. 3. [place] 7.5 one tablet p.o. every 6 hours p.r.n. 4. Albuterol inhaler 2 puffs 4 times a day and p.r.n. 5. Triamterene/hydrochlorothiazide 75/50 mg 1 tablet p.o. daily. 6. Trelegy Ellipta 100/62.5/25 one puff inhaled daily. 7. Theophylline 200 mg p.o. daily. 8. Singulair 10 mg p.o. daily. 9. Sertraline 100 mg p.o. daily. 10. Potassium chloride 10 mEq p.o. daily. 11. Neurontin 400 mg p.o. t.i.d. 12. Lasix 20 mg p.o. daily p.r.n. 13. Fosamax 70 mg 1 tablet p.o. as directed. 14. Allopurinol 600 mg p.o. daily. 15. Advair 500/50 one inhalation twice daily. 16. Abilify 2 mg p.o. daily with an additional 2 mg p.o. on top of that every other day, so 2 mg every other day and 4 mg every other day. 17. Trazodone 100 mg p.o. nightly. 18. Atorvastatin calcium 80 mg p.o. nightly. DISCHARGE DIET: Heart healthy. DISCHARGE ACTIVITY: As tolerated with assistance. DISCHARGE PHYSICIAN FOLLOWUP: Primary care provider and automatic machines supervisor, and probably infectious disease, Dr. Alvarez, 02/03/2019 at 0830. The primary care provider is Dr. Sebastian Beckwith. DISCHARGE INSTRUCTIONS: If your condition changes, contact physician and/or return to the emergency department. Changes may include, but are not limited to shortness of breath, increased fatigue, excessive bleeding, unexplained weight loss or gain, unmanageable pain, signs or symptoms of infection. Notify MD for any of the following: Pain or difficulty urinating, blood or pus in the urine, fever greater than 101 or chills, shortness of breath or chest pain, urine that is bloody, cloudy or dark, confusion, blood pressures that remain outside of the desired parameters, rapid heart rate, decreased urination, lower extremity swelling, or weight gain. General instructions include keep all followup appointments, sit up while eating or drinking, sleep in a semiupright position while using pillows to prop up on, continue to use your incentive spirometer 4 times daily for 2 weeks, reposition frequently to avoid any further breakdown to your skin, take all prescribed medications as directed, be sure to complete antibiotics, return to the emergency department immediately for any new or worsening symptoms, drink enough water to keep urine clear to pale yellow. If you do not have a primary care provider, you may call the physician referral number at [phone] to obtain a list of physicians who are taking new patients. DISCHARGE DISPOSITION: [facility] in [place]. Dictated by COURTNEY Martinez for Alvin Guzman MD Addendum: Patient seen and examined by myself. Agree with COURTNEY note. It reflects my assessment and plan. Patient is being discharged in stable condition. Will be sent to rehab in [place]. cc: COURTNEY Martinez MD Samuel Gillespie, MD Leroy F. Alvarez, MD [facility]
[2019-01-25 14:07] VITALS: BP 132/67
[2019-01-25] MEDS: NORCO-7.5 PO PRN (15:04)
== END 2019-01-25 15:30 | DRG 871 ==
LOC: ED 13:13 → ICU 15:44 → SUATTDRO 15:44 → 2N 01-22 12:01
PROVIDERS: ATTEND Internal Medicine

== ENCOUNTER 2019-03-05 13:11 | Inpatient (IN) ==
[2019-03-05] MEDS ORDERED: NS 1,000 ML IV ONE ×2 (13:55→15:12)
--- NOTE | 2019-03-05 14:14 | Diag Imaging Result Doc PS360 ---
EXAM: CHEST-1 VIEW 03/05/2019 HISTORY: COPD exac, recent pna TECHNIQUE: AP portable upright at 1403 COMMENT: The inspiration is better than on 01/20/2019. The atelectasis previously present in the left base has resolved. The left hemidiaphragm is still elevated. IMPRESSION: No evidence of acute disease. Electronically signed by Shyam Gant 03/05/2019 2:12 PM
[2019-03-05 14:35] LABS: ALB/GLOB RATIO 1.4; ALBUMIN 3.4 g/dL (3.5-5.0); BASO# 0.03 X1000 (0.0-0.2); BASO% 0.2 % (0.0-0.8); CALCIUM 8.1 mg/dL (8.8-10.2); CREATININE 2.1 mg/dL (0.5-0.9); EOS# 0.01 X1000 (0.0-0.7); EOS% 0.1 % (0.0-10.0); HEMATOCRIT 36.1 % (37.0-47.0); HEMOGLOBIN 11.7 g/dL (12.0-16.0); IMM GRAN# 0.05 X1000 (0.0-0.04); IMM GRAN% 0.4 % (0.0-0.5); LYMPH# 0.69 X1000 (1.2-3.4); LYMPH% 5.2 % (20.5-51.1); MAGNESIUM 1.6 mg/dL (1.5-2.7); MCH 28.7 PG (27-31); MCHC 32.4 g/dL (33-37); MCV 88.7 FL (81-99); MONO# 0.85 X1000 (0.11-0.59); MONO% 6.3 % (1.7-9.3); MPV 11.2 FL (7.4-10.4); NEUT# 11.76 X1000 (1.4-6.5); NEUT% 87.8 % (42.2-75.2); PLT 154 X1000 (130-400); POTASSIUM 3.4 mmol/L (3.5-5.1); RBC 4.07 XMIL (4.2-5.4); RDW 14.1 % (11.5-14.5); TOTAL BILIRUBIN 1.49 mg/dL (0.20-1.00); TOTAL PROTEIN 5.8 g/dL (6.3-8.3); WBC 13.39 X1000 (4.8-10.8)
[2019-03-05 14:43] LABS: URINE SOURCE CLEAN CATCH
[2019-03-05 14:49] LABS: BILIRUBIN URINE NEGATIVE (NEGATIVE); BLOOD URINE TRACE (NEGATIVE); COLOR YELLOW; GLUCOSE URINE NEGATIVE (NEGATIVE); KETONE URINE NEGATIVE (NEGATIVE); LEUKOCYTES URINE MODERATE (NEGATIVE); NITRITE URINE NEGATIVE (NEGATIVE); PROTEIN URINE 50 mg/dL (NEGATIVE); SP GRAVITY URINE 1.012; TURBIDITY URINE HAZY (CLEAR); UROBILINOGEN URINE 2 mg/dL (NORMAL)
[2019-03-05 14:51] LABS: UR EPITHELIAL CELLS <10 /HPF (<10); URINE BACTERIA NEGATIVE /HPF; URINE WBC 20-40 /HPF (<10)
[2019-03-05] MEDS ORDERED: INVANZ 0.5 GM in NS 50 ML IV ONE (15:11)
[2019-03-05 16:24] LABS: INR 1.19; PROTIME 15.3 Seconds (11.0-16.0)
[2019-03-05 16:25] LABS: PTT 27.6 Seconds (22.3-41.8)
[2019-03-05] MEDS ORDERED: NS 1,000 ML IV SCH ×2 (16:45→23:51)
--- NOTE | 2019-03-05 16:46 | EKG Report ---
Test Performed on : 03/05/2019 1:24:51 PM Test Reason : admission Blood Pressure : / mmHG Vent. Rate : 097 BPM Atrial Rate : 097 BPM P-R Int : 150 ms QRS Dur : 092 ms QT Int : 378 ms P-R-T Axes : 015 -44 009 degrees QTc Int : 480 ms Normal sinus rhythm. Possible Left atrial enlargement Left axis deviation Abnormal ECG When compared with ECG of 19-JAN-2019 13:33, (Unconfirmed) No significant change was found Unconfirmed Result
[2019-03-05] MEDS ORDERED: MAGNESIUM SULFATE 2 GM/S.W.I. 2 GM/50 ML IVPB IV ONE (17:09)
[2019-03-05] MEDS ORDERED: TYLENOL PO PRN (18:27)
[2019-03-05] MEDS ORDERED: ZOFRAN IV PRN (18:27)
[2019-03-05] MEDS ORDERED: KLOR-CON PO ONE (18:27)
--- NOTE | 2019-03-05 19:08 | PROVIDER DOCUMENTATION ---
This chart was entered by Theresa Potts Scribe, acting as scribe for Bruce Morrison MD. HPI-General Adult - General Chief Complaint: B/P Problems Stated Complaint: VOMITING Time Seen by Provider: 03/05/19 13:30 Source: patient, family Allergies/Adverse Reactions: Patient Allergies Allergy/AdvReac Type Severity Reaction Status Date / Time amoxicillin [From Augmentin] AdvReac NAUSEA/VOMI Verified 01/19/19 13:55 TING clavulanic acid AdvReac NAUSEA/VOMI Verified 01/19/19 13:55 [From Augmentin] TING Home Medications: Home Medication List Medication Instructions Recorded Confirmed Last Taken Type Albuterol Sulfate Inhaler 2 puff INH PRN PRN 08/27/16 01/19/19 08/30/16 History [Ventolin Hfa] Allopurinol 2 tab PO DAILY 08/27/16 01/19/19 08/31/16 09:00 History Aripiprazole [Abilify] 2 mg PO EVERY OTHER DAY 08/27/16 01/19/19 08/29/16 History Atorvastatin Calcium 80 mg PO QHS 08/27/16 01/19/19 08/31/16 19:00 History Fluticasone/Salmeterol [Advair 1 each IH BID 08/27/16 01/19/19 08/25/16 History 500-50 Diskus] Gabapentin 400 mg PO TID 08/27/16 01/19/19 08/31/16 09:00 History Potassium Chloride [Klor-Con 10] 10 meq PO DAILY 08/27/16 01/19/19 08/31/16 09:00 History Sertraline HCl 100 mg PO DAILY 08/27/16 01/19/19 08/31/16 09:00 History Theophylline Anhydrous 200 mg PO DAILY 08/27/16 01/19/19 08/31/16 09:00 History [Theophylline] Trazodone [Desyrel] 100 mg PO QHS 08/27/16 01/19/19 08/30/16 History Albuterol Sulfate Inhaler 2 puff INH [id number] 01/19/19 01/19/19 Unknown History [Ventolin Hfa] Alendronate [Fosamax] 1 tab PO DIRECTED 01/19/19 01/19/19 Unknown History Aripiprazole [Abilify] 1 tab PO DAILY 01/19/19 01/19/19 Unknown History Fluticasone/Umeclidin/Vilanter 1 puff INH DAILY 01/19/19 01/19/19 Unknown History [Natali Ellipta 100-62.5-25] Furosemide 20 mg PO DAILY PRN 01/19/19 01/19/19 Unknown History Guaifen/Phenyleph/Acetaminophn 1 ea PO Q6H PRN PRN 01/19/19 01/19/19 Unknown History [Ccp Caffeine Free Tablet] Montelukast [Singulair] 1 tab PO DAILY 01/19/19 01/19/19 Unknown History Triamterene/Hydrochlorothiazid 1 tab PO DAILY 01/19/19 01/19/19 Unknown History [Triamterene-Hctz 75-50 mg Tab] Ertapenem 1 gm/Ns [Invanz 1 gm/Ns] 1 gm .SEE ORDER DAILY #12 ivpb 01/24/19 Unknown Rx Amlodipine [Norvasc] 5 mg PO BID #60 tab 01/25/19 Unknown Rx Hydrocodone/APAP 7.5 mg/325 mg 1 tab PO Q6H PRN PRN #30 tab 01/25/19 Unknown Rx [[place]-7.5] - History of Present Illness -Gen Adult Nature of Presenting Problems: 68 yowf presents to the ed with c/o low BP this am (93/64), generalized fatigue and productive cough. pt sts had n/v earlier in the week but has resolved and cough has been present for 1 month. pt has recently dz with pna and had tx. pt on exam c/o low BP and fatigue Location of Pain/Injury: reports: generalized (fatigue) Quality of Pain: reports: other (fatigue denies pain) Severity: reports: moderate Onset/Duration: reports: this morning Timing: reports: still present (low bp and fatigue) Context/Activities at Onset: reports: light activity Modifying Factors: worse with: coughing, movement Associated Symptoms: reports: cough, fatigue, malaise, nausea, vomiting. denies: chest pain, diarrhea, fever/chills, headaches, shortness of breath Similar Symptoms Previously?: Yes Recently seen or treated by another doctor?: Yes (was recently dc from sp/rehab) Review of Systems - Adult - REVIEW OF SYSTEMS - ADULT Constitutional: reports: see HPI, fatique. denies: chills, fever Eyes: reports: no symptoms reported Ears, Nose, Mouth & Throat: reports: no symptoms reported Cardiovascular: denies: chest pain, palpitations, syncope Respiratory: reports: see HPI, cough. denies: shortness of breath, wheezing Gastrointestinal: reports: see HPI, nausea, vomiting. denies: abdominal pain, diarrhea Genitourinary: reports: no symptoms reported Musculoskeletal: reports: no symptoms reported Integumentary: reports: no symptoms reported Neurological: denies: dizziness/vertigo, headache/migraines Psychiatric: reports: no symptoms reported Endocrine: reports: no symptoms reported Hematologic/Lymphatic: reports: no symptoms reported Allergic/Immunologic: reports: see HPI, asthma All Other Systems: Reviewed and Negative Past History - Adult - PAST MEDICAL HISTORY-ADULT Review of Records: reports: Old Records Reviewed, Nursing Assessment Review, Medications Reviewed, Social history reviewed & non-contributory. Major Childhood Illnesses: reports: denies history Cardiovascular: reports: HTN Respiratory: reports: asthma, COPD, pneumonia Gastrointestinal: reports: denies history Obstetrical/Gynecological: reports: denies history Genitourinary: reports: denies history Musculoskeletal: reports: denies history Neurological: reports: denies history Psychiatric: reports: denies history Endocrine/Immune: reports: denies history Other Conditions: reports: denies history - PRIOR SURGERIES/PROCEDURES Surgical/Procedure History: reports: hysterectomy, tonsillectomy - IMMUNIZATION STATUS Childhood Immunizations: See Nurse Assessment Flu Vaccine: See Nurse Assessment - FAMILY HISTORY Family History: reviewed, not pertinent - SOCIAL HISTORY Smoking: non-smoker Substance Use: denies Living Situation: family Physical Exam-General - PHYSICAL EXAM-ADULT Initial Vital Signs Reviewed: Yes (noted BP) - CONSTITUTIONAL General Appearance: appears well, alert, no apparent distress, obese - EYES Eyes: PERRL/EOMI, pink conjunctivae - HEAD, EARS, NOSE, MOUTH & THROAT HENMT: moist mucous membranes - NECK Neck: non-tender, full range of motion, supple, normal inspection - RESPIRATORY Respiratory: chest non-tender, lungs clear, normal breath sounds, rhonchi (with cough only), other (has productive cough/92% on RA). negative: respiratory distress - CARDIOVASCULAR Cardiovascular: normal peripheral pulses, tachycardia (105) - CHEST (BREASTS) Chest/Breast: deferred - GASTROINTESTINAL (ABDOMEN) Abdominal Exam: normal bowel sounds, non tender, soft - GENITOURINARY Female Genitalia/Pelvic Exam: deferred Rectal Exam: deferred Hemoccult Exam: deferred - MUSCULOSKELETAL Extremity: normal range of motion, normal capillary refill - SKIN Integumentary: normal color, normal turgor, warm/dry - NEUROLOGIC Neurologic: grossly normal - PSYCHIATRIC Psych/Mental Status: normal mood/affect, normal thought content, normal thought process, oriented x 3 Progress - PLAN OF CARE/RESULTS Progress/Plan/Lab Results: Vital Signs - 8 hr 03/05/19 13:13 Temperature 98.7 F Pulse Rate 105 H Respiratory Rate 20 Blood Pressure 87/51 O2 Sat by Pulse Oximetry 95 Orders Category Date Time Status CBC WITH DIFF [HEME] Stat Lab 03/05/19 13:31 Uncollected COMPREHENSIVE METABOLIC PANEL [CHEM] Stat Lab 03/05/19 13:31 Uncollected MAGNESIUM [CHEM] Stat Lab 03/05/19 13:31 Uncollected URINALYSIS W/POSS RFLX CULT [URINALYSIS] Stat Lab 03/05/19 13:31 Uncollected Result Diagrams: 03/05/19 13:56 03/05/19 13:56 - REASSESSMENT Reassessment #1 Time Reassessed: 15:32 Status: unchanged - EKG 1 Time of EKG reading by physician:: 13:24 EKG Read and Signed by:: Bruce Morrison EKG Interpretation (*Must complete 3 of following elements*): Abnormal Rate: 97 Rhythm: nsr [place]: left (deviation) QRS: other (possible left atrial enlargement) ST Wave: normal - XRAY 1 XRAY: Bilateral XRAY Study: Chest Impression: See EMR Report (EXAM: CHEST-1 VIEW 03/05/2019 HISTORY: COPD exac, recent pna TECHNIQUE: AP portable upright at 1403 COMMENT: The inspiration is better than on 01/20/2019. The atelectasis previously present in the left base has resolved. The left hemidiaphragm is still elevated. IMPRESSION: No evidence of acute disease. Electronically signed by Shyam Gant 03/05/2019 2:12 PM 03/05/19 1412 Interpreting Physician: Shyam Gant MD Dict ated Date/Time: 03/05/19 1411 cc: Bruce Morrison MD; Sebastian Beckwith MD) - CONSULTS/PCP/HOSPITALIST Notification #1 *Consult/PCP/Hospitalist*: hospitalist Time Discussed: 16:08 (spoke with gladys) Consult Disposition: Will see in ED, Admit Departure - Departure Date of Disposition Decision: 03/05/19 Time of Disposition Decision: 16:15 DIAGNOSIS: COPD exacerbation, Hypotensive episode Disposition: ADMITTED INPATIENT 09 Certified Medical Emergency: Emergent Condition: Good - Critical Care Note This patient required my direct & personal management of CC.: Yes Total Time (mins): 38 Critical Care Statement: This patient required my direct personal management to treat or rule out processes, the absence of which, could potentiallly result in sudden, clinically significant life or limb threatening deterioration. Attestation - Physician/ ROSALVA Attestation Patient care was provided by Advanced Practice Provider:: No The physician spent face to face time with patient:: Yes Advanced Practice Provider documentation review:: Supervising physician onsite and consulted in the evaluation and care of this patient. The physician did have a face to face encounter with the patient. This chart was documented by the indicated scribe, (Theresa Potts Scribe) and accurately reflects the services I performed and decisions made by me, Bruce Morrison MD, as attested by the provider's signature.
[2019-03-05] MEDS: ZYVOX 600 MG/D5W 600 MG/300 ML IVPB IV SCH (19:27)
[2019-03-05] MEDS: DUONEB (A & A) INH SCH (19:55)
[2019-03-05] MEDS ORDERED: NORCO-7.5 PO PRN (23:32)
[2019-03-06] MEDS: DUONEB (A & A) INH SCH ×5 (03:50→17:29)
[2019-03-06] MEDS: ZYVOX 600 MG/D5W 600 MG/300 ML IVPB IV SCH (05:56)
--- NOTE | 2019-03-06 07:00 | HISTORY AND PHYSICAL ---
PRIMARY CARE PROVIDER: Dr. Beckwith. CHIEF COMPLAINT: Not feeling well. HISTORY OF PRESENT ILLNESS: Ms. Montoya is a 68-year-old, female who carries a past medical history of hypertension, asthma, COPD, GERD, arthritis, and gout, who was recently admitted to our service on 01/19/2019 and discharged on 01/25/2019. At that time, she was admitted for sepsis and pneumonia, and found to have an ESBL Escherichia coli urinary tract infection. She was followed by Dr. Alvarez and discharged to rehab with 12 days' worth of ertapenem. She got out of rehab around the or the . She reports she was doing well up until this last week. She went to see her primary care provider, Dr. Beckwith, the previous Thursday. She had gotten some medication for nausea. They picked it up this and they were also given an antibiotic for which they were unaware of what for, but on Thursday, the patient became weak where she was not able to walk. She was having nausea, vomiting, and chills. The vomiting subsided after . She still just continued to feel bad and have chills. At the urging of her family, she was brought to the ED. Workup in the ED revealed a white count of 13, a sodium of 128, a potassium of 3.4, and acute kidney injury on chronic kidney disease, an elevated troponin, as well as a urinary tract infection. Per patient report, she only remembers receiving one IV antibiotic throughout her rehab stay. However, she could not say for sure. She also reports a decrease in appetite as well as a productive cough for over a month with copious amounts of green sputum but no wheezes. No cardiac type chest pain. No heart palpitations. No abdominal pain. No dysuria. No frequency but foul-smelling dark urine. No diarrhea or dark tarry stools. Initially, she was hypotensive, and hypoxemic. However, after IV fluids, the patient's blood pressure has come up to the 100s. Her O2 saturations are in the mid 90s. She reports that she is feeling better after having IV fluids and was requesting to be discharged home or at least be discharged home in the morning. However, we did discuss that she would need to be treated with IV antibiotics for her urinary tract infection as well as treat her electrolytes, replenish her with IV fluids, and treat her with IV antibiotics for her urinary tract infection, for which she was agreeable. PAST MEDICAL HISTORY: Hypertension, asthma, COPD, GERD, arthritis, and gout. Recent urinary tract infection that was ESBL positive E. coli. PAST SURGICAL HISTORY: Partial hysterectomy with ovaries removed, appendectomy. SOCIAL HISTORY: She is retired. She is a . She has 2 children. No alcohol, tobacco, or illicit drug use. Her asthma and COPD are from secondhand smoke. Her father was a smoker as well as her . ALLERGIES: To Augmentin which causes nausea and vomiting. MEDICATIONS: Home medications are currently being compiled. She did report that some of her medications were changed, that she was taken off her Norvasc and placed on Monopril and Maxzide. REVIEW OF SYSTEMS: Twelve-point review of systems completely negative except for those mentioned in the HPI. PHYSICAL EXAMINATION: VITAL SIGNS: Temperature is 98.7 degrees, heart rate 89, respirations 17, blood pressure was 105/64, O2 is 95% on room air. GENERAL: Ms. Montoya is a 68-year-old, female who is sitting up in the bed, in no acute distress. HEENT: Atraumatic, normocephalic. PERRL. Neck supple. Trachea midline. Mucous membranes are extremely dry. HEART: S1, S2 appreciated. No murmurs, gallops, or rubs noted. RESPIRATORY: Lung sounds clear in all lung infante. GI: Soft, nontender, nondistended. Positive bowel sounds in 4 quadrants. EXTREMITIES: Lower extremities negative for edema. NEUROLOGIC: No focal deficits noted. LABORATORY DATA: White count 13, hemoglobin and hematocrit 11 and 36, platelet count 154,000. Sodium 128, potassium 3.4, BUN 30, creatinine 2.1, blood glucose is 153, calcium 8.1, magnesium 1.6. Total bilirubin 1.49. Troponin 0.278. Albumin 3.4. Urinalysis, RBC 10 to 20, WBC 20 to 40, leukocytes moderate, nitrite negative, urine bacteria negative. ASSESSMENT AND PLAN: 1. Urinary tract infection, probable extended-spectrum B-lactamase Escherichia coli. We are currently awaiting the urine culture. We will continue intravenous antibiotics with ertapenem. We will consult Dr. Kyle Alvarez. The patient has noticed a foul-smelling odor and dark urine. 2. Fluid volume depletion secondary to nausea and vomiting, which has now subsided. We will continue with intravenous fluids. We will check her urine electrolytes. 3. Hypokalemia. We will treat her with oral potassium. 4. Acute kidney injury on probable chronic kidney disease. We will continue with intravenous hydration and check urine studies. 5. Elevated troponin in the setting of acute kidney injury. She does not complain of any chest pain. We will go ahead and get an electrocardiogram and trend 2 more sets of cardiac enzymes. 6. Question persistent pneumonia versus bronchitis. The patient reports that for over a month, she has had a persistent cough and has been spitting up copious amounts of green sputum. We will add Zyvox to her regimen, given her kidney function. 7. Hypotension, resolved with intravenous fluids. 8. Hypoxemic on arrival. That is resolved. We will add supplemental oxygen if needed. 9. Hypertension. We will hold any antihypertensive for now. 10. Asthma and chronic obstructive pulmonary disease. She does not appear to be in an asthma exacerbation. However, we will continue with bronchodilators and aggressive pulmonary toilet. 11. Further recommendations to follow physician evaluation, laboratory and diagnostic data. Dictated by COURTNEY Smith for Chelita Morales MD cc: MD Sebastian Sutton MD I performed a face to face encounter on the patient. I reviewed all labs and imaging on the patient. I agree with the H&P as dictated. [facility]
--- NOTE | 2019-03-06 07:28 | Diag Imaging Result Doc PS360 ---
EXAM: CHEST-PORTABLE 03/06/2019 HISTORY: dyspnea TECHNIQUE: AP portable upright at 0551 COMMENT: The lungs are not as well-expanded as on 03/05/2019. There is some platelike atelectasis in the left lower lobe. IMPRESSION: Poor inspiration. Atelectasis. Electronically signed by Shyam Gant 03/06/2019 7:26 AM
[2019-03-06 07:59] LABS: BASO# 0.01 X1000 (0.0-0.2); BASO% 0.1 % (0.0-0.8); EOS# 0.02 X1000 (0.0-0.7); EOS% 0.2 % (0.0-10.0); HEMATOCRIT 30.1 % (37.0-47.0); HEMOGLOBIN 9.6 g/dL (12.0-16.0); IMM GRAN# 0.04 X1000 (0.0-0.04); IMM GRAN% 0.3 % (0.0-0.5); LYMPH# 0.75 X1000 (1.2-3.4); LYMPH% 6.5 % (20.5-51.1); MCH 28.8 PG (27-31); MCHC 31.9 g/dL (33-37); MCV 90.4 FL (81-99); MONO# 0.64 X1000 (0.11-0.59); MONO% 5.5 % (1.7-9.3); NEUT# 10.14 X1000 (1.4-6.5); NEUT% 87.4 % (42.2-75.2); PLT 127 X1000 (130-400); RBC 3.33 XMIL (4.2-5.4); RDW 14.2 % (11.5-14.5)
[2019-03-06 08:49] LABS: LYMPHS 7 % (21-51); MONO 6 % (1-9); SEGS 87 % (42-75)
[2019-03-06 08:50] LABS: ANISOCYTOSIS 1+
[2019-03-06 08:51] LABS: ALBUMIN 2.8 g/dL (3.5-5.0); CALCIUM 7.1 mg/dL (8.8-10.2); CREATININE 2.3 mg/dL (0.5-0.9); MAGNESIUM 2.2 mg/dL (1.5-2.7); POTASSIUM 3.6 mmol/L (3.5-5.1); TOTAL BILIRUBIN 0.94 mg/dL (0.20-1.00); TOTAL PROTEIN 4.2 g/dL (6.3-8.3)
[2019-03-06] MEDS: NEURONTIN PO SCH ×3 (09:32→21:39)
[2019-03-06] MEDS: MERREM 1 GM in NS 50 ML IV SCH ×2 (09:33→21:39)
[2019-03-06] MEDS: SINGULAIR PO SCH (09:33)
[2019-03-06] MEDS: ZOLOFT PO SCH (09:33)
[2019-03-06] MEDS ORDERED: NS 1,000 ML IV SCH (14:32)
--- NOTE | 2019-03-06 14:37 | INFECTIOUS DISEASE PROGRESS NO ---
DATE: 03/06/2019 PRESENT ILLNESS: The patient is readmitted to the hospital with a gram-negative rowena bacteremia. I think that this most likely has originated from a recurrence of her recent extended spectrum beta lactamase producing E coli urinary tract infection. MEDICATIONS: The patient is on ertapenem in a reduced dose because of the patient's end-stage renal disease. PHYSICAL EXAMINATION: Vital Signs: Temperature is 98.8 degrees, pulse 88, respirations 22, blood pressure 84/43. General: This is a ill-appearing elderly female she is in no acute distress. Head/eyes/ears/nose/throat: She can hear my spoken words and see near objects. I did not notice any white coating on her tongue. Neck: No pain with movement. Lungs: Clear to auscultation. Cardiovascular: The heart rate is regular. Abdomen: Soft and nontender. Neurologic: The patient is alert she can move her extremities. She talks in a coherent fashion. There is no tremor. LAB AND X-RAY: Chest x-ray shows some atelectatic changes in the left lower lobe. The blood cultures are growing a gram-negative rowena. Urine culture is pending. Urinalysis had white cells, but no bacteria. Liver function studies are normal. Creatinine is 2.3. GFR is 21. CBC shows a white count of 11,600, hemoglobin 9.6, and platelet count 127,000. ASSESSMENT AND PLAN: It appears that the patient is going to have most likely recurrence of her recent extended spectrum beta lactamase producing Escherichia coli urinary tract infection with an associated bacteremia. My plan is to not use ertapenem which was use before and apparently has not worked in eradicating the infection and instead I am going to put the patient on meropenem in a reduced dose because of the patient's end-stage renal disease. Some of the side effects of meropenem including rash, diarrhea and seizures have been explained to the patient who agrees with treatment. I have ordered a bedside renal ultrasound and also put in there to check for postvoid residual urine. I agree with obtaining an echocardiogram in view of the fact that the patient appears to have a recurrence of the gram-negative rowena bacteremia she had earlier. COMORBIDITIES: The patient is elderly. She also has asthma, chronic obstructive pulmonary disease, gastroesophageal reflux disease. The patient also, as mentioned above, had a recent extended spectrum beta lactamase producing E coli urinary tract infection and bacteremia. cc: Kyle Alvarez MD
[2019-03-06] MEDS ORDERED: INVANZ 0.5 GM in NS 50 ML IV SCH (15:00)
[2019-03-06 16:05] LABS: URINE SOURCE CATH
[2019-03-06 16:14] LABS: BILIRUBIN URINE NEGATIVE (NEGATIVE); BLOOD URINE NEGATIVE (NEGATIVE); COLOR YELLOW; GLUCOSE URINE NEGATIVE (NEGATIVE); KETONE URINE NEGATIVE (NEGATIVE); LEUKOCYTES URINE SMALL (NEGATIVE); NITRITE URINE NEGATIVE (NEGATIVE); PROTEIN URINE 30 mg/dL (NEGATIVE); SP GRAVITY URINE 1.013; TURBIDITY URINE CLEAR (CLEAR); UR EPITHELIAL CELLS <10 /HPF (<10); URINE BACTERIA NEGATIVE /HPF; URINE RBC <10 /HPF (<10); UROBILINOGEN URINE NORMAL (NORMAL)
[2019-03-06 16:37] LABS: UR CREAT RANDOM 95.7 mg/dL (11-20); UR PROT RANDOM 19.7 mg/dL
[2019-03-06] MEDS ORDERED: NS 500 ML IV ONE (17:18)
[2019-03-06] MEDS: DUONEB (A & A) INH PRN (19:37)
[2019-03-06] MEDS ORDERED: HALL'S COUGH LOZENGE MT PRN (19:45)
--- NOTE | 2019-03-06 21:06 | PROGRESS NOTE ---
DATE: 03/06/2019 SUBJECTIVE: The patient is resting comfortably in bed. She states that she feels a lot better today. OBJECTIVE: Vital Signs: Temperature 98.5 degrees, blood pressure 87/47, heart rate 92, respirations 18, O2 saturations 100% on 2 L nasal cannula. General: This is a chronically ill- appearing elderly female lying in bed in no acute distress. Heart: S1, S2 normal. Regular rate and rhythm. Lungs: Equal air entry bilaterally. No wheezing. No rales. No rhonchi. Abdomen: Positive bowel sounds. Soft, nontender, nondistended. Extremities: No edema. No cyanosis. No calf tenderness. Neurologic: The patient is alert and oriented x4. LABS: White blood cell count 11, hemoglobin 9.6, hematocrit 30, platelets 127,000. Sodium 131, potassium 3.6, chloride 94, CO2 19, BUN 30, creatinine 2.3, glucose 145, calcium 7.1. Troponin 0.19. ASSESSMENT AND PLAN: 1. Urinary tract infection. The urine culture is growing gram-negative rods. The patient's prior culture grew out extended spectrum beta-lactamases Escherichia coli. The patient has been switched to Merrem by Dr. Alvarez. 2. Acute kidney injury on chronic kidney disease. The FENa is less than 1. We will continue with IV fluids and monitor for improvement. 3. Situational depression. Continue on Zoloft. 4. Sepsis. Likely secondary to the patient's underlying urinary tract infection. Continue with fluids and antibiotic therapy. 5. Neuropathy. Continue on Neurontin. 6. Anemia. Stable. 7. Deep vein thrombosis prophylaxis. We will start the patient on heparin. cc: Chelita Morales MD [facility]
[2019-03-06] MEDS: HEPARIN SUBQ SCH (21:39)
[2019-03-07] MEDS: NS 1,000 ML IV SCH ×2 (00:21→04:40)
[2019-03-07 07:36] LABS: BASO# 0.02 X1000 (0.0-0.2); BASO% 0.2 % (0.0-0.8); EOS# 0.16 X1000 (0.0-0.7); EOS% 1.9 % (0.0-10.0); HEMATOCRIT 28.1 % (37.0-47.0); IMM GRAN# 0.03 X1000 (0.0-0.04); IMM GRAN% 0.4 % (0.0-0.5); LYMPH# 1.06 X1000 (1.2-3.4); LYMPH% 12.8 % (20.5-51.1); MCH 28.9 PG (27-31); MCV 90.4 FL (81-99); MONO# 0.59 X1000 (0.11-0.59); MONO% 7.1 % (1.7-9.3); MPV 11.5 FL (7.4-10.4); NEUT% 77.6 % (42.2-75.2); PLT 144 X1000 (130-400); RBC 3.11 XMIL (4.2-5.4); RDW 14.5 % (11.5-14.5); WBC 8.26 X1000 (4.8-10.8)
[2019-03-07 08:14] LABS: ALBUMIN 2.4 g/dL (3.5-5.0); CALCIUM 6.9 mg/dL (8.8-10.2); CREATININE 2.3 mg/dL (0.5-0.9); PHOSPHORUS 3.3 mg/dL (2.7-4.5); POTASSIUM 4.1 mmol/L (3.5-5.1)
[2019-03-07] MEDS ORDERED: CALCIUM GLUCONATE 1 GM in NS 50 ML IV ONE (08:32)
--- NOTE | 2019-03-07 08:55 | Diag Imaging Result Doc PS360 ---
EXAM: US RENAL 2 (RETROPER) COMPLETE INDICATION: recurrent UTI TECHNIQUE: COMPARISON: Abdominal ultrasound dated 01/20/2019 FINDINGS: The kidneys are grossly normal in echotexture with no discrete renal mass or hydronephrosis. Right kidney measures 10.8 cm and the left kidney measures 11.3 cm in the greatest longitudinal axes. Right renal cortex measures 1.1 cm and the left renal cortex measures 1.3 cm in thickness. There is a Avila catheter in the urinary bladder. The bladder contains a small amount of urine. The estimated bladder volume is 54.75 cc. The urinary bladder is unremarkable, otherwise. IMPRESSION: Unremarkable renal ultrasound. Electronically signed by Nasir Monroy 03/07/2019 8:53 AM
[2019-03-07] MEDS: HEPARIN SUBQ SCH ×2 (09:17→21:29)
[2019-03-07] MEDS: NEURONTIN PO SCH ×3 (09:17→18:17)
[2019-03-07] MEDS: ABILIFY PO SCH (09:17)
[2019-03-07] MEDS: SINGULAIR PO SCH (09:17)
[2019-03-07] MEDS: ZOLOFT PO SCH (09:17)
[2019-03-07] MEDS: NON-FORMULARY BULK MED INH SCH ×2 (10:52→10:58)
[2019-03-07] MEDS: DUONEB (A & A) INH PRN ×3 (10:52→19:13)
[2019-03-07] MEDS ORDERED: LASIX IV ONE (11:30)
[2019-03-07] MEDS: MERREM 1 GM in NS 50 ML IV SCH ×2 (11:33→21:25)
[2019-03-07] MEDS: COLACE PO SCH ×2 (11:49→21:29)
[2019-03-07] MEDS: MIRALAX PO SCH (11:49)
--- NOTE | 2019-03-07 12:25 | Diag Imaging Result Doc PS360 ---
CHEST-1 VIEW - 03/07/2019 INDICATION: dyspnea COMPARISON: 03/06/2019 FINDINGS: Stable cardiomegaly and pulmonary vascular congestion. Lung volumes remain somewhat low. There is some stable strandy atelectasis in the lung bases. No new infiltrates. No pneumothorax or pleural effusion. IMPRESSION: No change from prior. Electronically signed by Malik Mott 03/07/2019 12:22 PM
--- NOTE | 2019-03-07 15:31 | ECHO REPORT ---
ORDER DATE: 03/05/2019 INTERPRETING PHYSICIAN: Dr. Kendrick Mora ECHOCARDIOGRAPHIC MEASUREMENTS: 1. Interventricular septum 0.9. 2. Left ventricular posterior wall 1.2. 3. Diastolic diameter 4.1. 4. Left atrium 3. 5. Aorta 2.4. SUMMARY OF THE 2-DIMENSIONAL IMAGIN. Mitral valve was normal. There is mitral annular calcification. 2. Tricuspid valve was normal. 3. Aortic valve leaflets were trileaflet. 4. There is mild mitral regurgitation. There is grade 1 diastolic dysfunction. 5. Peak velocity across the aortic valve less than 2 meters/second. There is no aortic stenosis or regurgitation. Normal left ventricular cavity size. Estimated ejection fraction of 65%. There is mild left ventricular hypertrophy. 6. There is trace tricuspid regurgitation. Peak velocity across the tricuspid valve less than 2 meters/second. 7. Anterior echo-free space, history of pericardial fat pad noted. cc: Kendrick Mora MD
--- NOTE | 2019-03-07 20:16 | INFECTIOUS DISEASE PROGRESS NO ---
DATE: 03/07/2019 PRESENT ILLNESS: Ms. Montoya is being treated for a recurrent gram-negative rowena bacteremia which we think will most likely be an extended spectrum beta lactamase producing Escherichia coli as it was on her previous admission. This has already been seen in her urine on this admission. There is also a gram-negative rowena on the Gram stain of the sputum culture. MEDICATIONS: She is receiving meropenem 1 g IV every 12 hours as a renally modified dose. PHYSICAL EXAMINATION: Vital Signs: Temperature is 98.3 degrees, pulse rate 92, respiratory rate 18, blood pressure 101/46, O2 saturation is 96% on 2 L nasal cannula. General: This is an elderly, somewhat ill-appearing female. She is sitting up in a chair currently in no acute distress. HEENT: Atraumatic, normocephalic. Oral mucous membranes are pink and moist. Conjunctiva are pale. Neck: Supple. Trachea is midline. Cardiovascular: Heart rate is regular. S1-S2 noted with a mild systolic murmur. Respiratory: Lung sounds are clear to auscultation bilaterally. Diminished in the bases. She is complaining of a frequent cough. Integumentary: Skin is warm and dry. Neurologic: She is awake, alert, oriented, and able to ambulate with assistance. LABORATORY AND X-RAY: Today, her white count is 8.26, hemoglobin 9, platelet count 144,000. Creatinine is 2.3, GFR is 21. So far on this admission, there is a gram- negative rowena in both blood cultures as well as an ESBL producing Escherichia coli in her urine and gram-negative rowena in her sputum Gram stain. Chest x-ray done today shows no change with pulmonary vascular congestion and strandy atelectasis in the lung bases. Renal ultrasound is unremarkable. ASSESSMENT AND PLAN: Ms. Montoya has a gram-negative rowena bacteremia, which we think will probably be a repeat of her previous extended spectrum beta-lactamase producing Escherichia coli, which started in her urine, with an associated bacteremia. She was previously receiving ertapenem, but has now been changed to meropenem as a renally modified dose, which we will continue at this time. She does have some respiratory complaints which included cough and some shortness of breath. There is no pneumonia seen on chest x-ray at this point, however, we will continue to follow her. For now, we will continue the meropenem as ordered and await the results of the cultures that have been done so far. We will then repeat her culture to obtain a sterile set. These plans have been discussed with and recommended by Dr. Alvarez. COMORBIDITIES: For Ms. Montoya include that she is elderly with asthma, COPD, gastroesophageal reflux disease. Dictated by COURTNEY Mitchell for Kyle Alvarez MD cc: Kyle Alvarez MD [facility]TDD
--- NOTE | 2019-03-07 21:10 | PROGRESS NOTE ---
DATE: 03/07/2019 SUBJECTIVE: The patient complains of shortness of breath this morning. OBJECTIVE: Vital Signs: Temperature 98.9 degrees, blood pressure 104/51, heart rate 81, respirations 18, O2 saturation 98% on 2 L nasal cannula. Intake 3.3 L, output 975. General: This is a chronically ill-appearing elderly female lying in bed in no acute distress. Heart: S1, S2 normal. Regular rate and rhythm. Lungs: Diminished breath sounds at the bases. No wheezing. No rales. Abdomen: Positive bowel sounds. Soft, nontender, nondistended. Extremities: Trace pedal edema in the lower extremities. Neurologic: The patient is alert and oriented x3. LABS: White blood cell count 8.2, hemoglobin 9, hematocrit 28, platelets 144,000. Sodium 124, potassium 4.1, chloride 93, CO2 18, BUN 32, creatinine 2.3, glucose 99, calcium 6.9, phosphorus 3.3. ProBNP 1402. Albumin 2.4. Chest x-ray shows pulmonary vascular congestion. No new infiltrates. ASSESSMENT AND PLAN: 1. Sepsis secondary to extended spectrum beta-lactamases Escherichia coli urinary tract infection with associated bacteremia. Continue on Merrem as directed by Dr. Alvarez. 2. Acute kidney injury on chronic kidney disease. Slowly improving. Will discontinue the IV fluid. The renal ultrasound was unremarkable. 3. Hyponatremia. The serum and urine osmolality are low. The urine sodium is high. The sodium has worsened with IVF administration. Will place the patient on a fluid restriction and discontinue the zoloft. 4. Urinary tract infection secondary to extended spectrum beta-lactamases Escherichia coli. Continue on Merrem. 5. Bacteremia secondary to gram negative rods. This will likely end up being Escherichia coli. We will continue with antibiotic and follow up on the final culture results. 6. Neuropathy. Continue on Neurontin. 7. Anemia. Stable. 8. Severe protein-calorie malnutrition. We will consult with the dietitian. 9. Deep vein thrombosis prophylaxis. Continue on heparin. cc: Chelita Morales MD [facility]TD[facility]
[2019-03-07 21:21] LABS: ALBUMIN 2.8 g/dL (3.5-5.0); CALCIUM 7.6 mg/dL (8.8-10.2); CREATININE 1.9 mg/dL (0.5-0.9); PHOSPHORUS 3.3 mg/dL (2.7-4.5); POTASSIUM 4.2 mmol/L (3.5-5.1)
[2019-03-08 08:08] LABS: BASO# 0.01 X1000 (0.0-0.2); BASO% 0.2 % (0.0-0.8); EOS# 0.16 X1000 (0.0-0.7); EOS% 3.4 % (0.0-10.0); HEMATOCRIT 28.7 % (37.0-47.0); HEMOGLOBIN 9.1 g/dL (12.0-16.0); IMM GRAN# 0.02 X1000 (0.0-0.04); IMM GRAN% 0.4 % (0.0-0.5); LYMPH# 0.77 X1000 (1.2-3.4); LYMPH% 16.3 % (20.5-51.1); MCH 28.3 PG (27-31); MCHC 31.7 g/dL (33-37); MCV 89.4 FL (81-99); MONO# 0.48 X1000 (0.11-0.59); MONO% 10.2 % (1.7-9.3); MPV 11.2 FL (7.4-10.4); NEUT# 3.28 X1000 (1.4-6.5); NEUT% 69.5 % (42.2-75.2); PLT 165 X1000 (130-400); RBC 3.21 XMIL (4.2-5.4); RDW 14.6 % (11.5-14.5); WBC 4.72 X1000 (4.8-10.8)
[2019-03-08 08:31] LABS: ALBUMIN 2.8 g/dL (3.5-5.0); CALCIUM 7.9 mg/dL (8.8-10.2); CREATININE 1.6 mg/dL (0.5-0.9); PHOSPHORUS 3.8 mg/dL (2.7-4.5); POTASSIUM 4.2 mmol/L (3.5-5.1)
[2019-03-08] MEDS ORDERED: MIRALAX PO SCH (09:00)
[2019-03-08] MEDS: SINGULAIR PO SCH (09:59)
[2019-03-08] MEDS: COLACE PO SCH ×2 (09:59→20:33)
[2019-03-08] MEDS: MIRALAX PO SCH (09:59)
[2019-03-08] MEDS: NEURONTIN PO SCH ×3 (10:00→18:20)
[2019-03-08] MEDS: HEPARIN SUBQ SCH ×2 (10:00→20:33)
[2019-03-08] MEDS: MERREM 1 GM in NS 50 ML IV SCH (10:00)
[2019-03-08] MEDS: NON-FORMULARY BULK MED INH SCH (10:01)
--- NOTE | 2019-03-08 14:42 | INFECTIOUS DISEASE PROGRESS NO ---
DATE: 03/08/2019 PRESENT ILLNESS: The patient has an extended-spectrum beta-lactamase producing Escherichia coli urinary tract infection and associated bacteremia. MEDICATIONS: The patient is on meropenem, the dose of which has been adjusted because of the patient's end-stage renal disease. PHYSICAL EXAMINATION: Vital Signs: Temperature is 99 degrees, pulse 80, respirations 20, blood pressure 103/62. General: This is a somewhat ill-appearing, elderly female. She is in no acute distress. Head/Eyes/Ears/Nose/Throat: She can hear my spoken words and see near objects. She does not have any white patches on her tongue. Neck: No pain with movement. Lungs: Clear to auscultation. Cardiovascular: Heart rate is regular. Abdomen: Soft and nontender. Neurologic: The patient is alert she can move her extremities. There is no tremor. She is able to ambulate with assistance. LABORATORY AND X-RAY: CBC shows a white count of 4720, hemoglobin 9.1, platelet count 165,000. Creatinine is 1.6. GFR is 32. Sputum grew a normal mirella. The patient has an extended-spectrum beta-lactamase producing Escherichia coli bacteremia and urine culture. Repeat urine cultures negative. Renal was normal. A postvoid residual urine was 55 mL. ASSESSMENT AND PLAN: The patient has an extended-spectrum beta-lactamase producing urinary tract infection and associated bacteremia. My plan is to continue meropenem now for a longer time than the 2 weeks that she was on when she was on ertapenem. COMORBIDITIES: She is elderly. She has asthma, chronic obstructive pulmonary disease, gastroesophageal reflux disease. cc: Kyle Alvarez MD
--- NOTE | 2019-03-08 16:25 | PROVIDER PROGRESS NOTE ---
Progress Note Chief Complaint: I was feeling bad. HPI: Ms. Montoya is a 68-year-old white female with a past medical history of hypertension, COPD, and recent urinary tract infection that was the ESBL and E. coli positive 01/19. She went to rehab after her discharge and completed without complications. She went to her primary care provider last week for nausea and was given medicine for that and an antibiotic for an unknown reason. Soon after her visit, she was unable to walk with complaints of n/v and chills. She was brought to the ED with lab work up of increased WBC and hyponatremia. She denies current fever or chills, shortness of breath, cough, dysuria, diarrhea, dark tarry stools, nausea, and vomiting. Her blood and urine cultures have g aquiles-negative rowena escherichia coli. Past medical history: hypertension, asthma, COPD, Gerd, arthritis, gout, resent urinary tract infection that was ESBL with e. Coli positive on 01/19. Past surgical history: partial hysterectomy and appendectomy. 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 She denies alcohol, tobacco, or illicit drug use. Family history: mother positive for diabetes and hypertension. Father positive for coronary artery disease. Allergies: Augmentin Home medications: Fosamax, allopurinol, Abilify, atorvastatin calcium, Celebrex,Invanz, fosinopril, Lasix, gabapentin, CACP caffeine free tablet, [place] 7.5, meclizine, Singulair, potassium chloride, sertraline hcl, theophylline,triamterene hctz Review of systems: negative except listed positives in HPI. Labs: Wbc 4.72, hemoglobin 9.1, hematocrit 28.7, platelet count 165, sodium 123, potassium 4.2, chloride 93, carbon dioxide 21, BUN 27, creatinine 1.6. Imaging: Renal ultrasound unremarkable. Chest X-ray with stable cardiomegaly and pulmonary vascular congestion with low lung volumes. Physical exam: temperature 99.0, pulse 80, respirations 20, blood pressure 103/62, 02 sat 98% on room air. General: White female lying in bed in no acute distress HEENT: normocephalic, atraumatic, pupils equal and reactive, membranes moist, trachea midline Skin: warm and dry Neck: supple, JVD noted Cardiovascular: s1S2, regular rate and rhythm with a gallop noted. No murmur. Respiratory: clear anteriorly. Abdomen: soft, nontender, nondistended, bowel sounds active : non inspected, laguerre in place. Extremities: No clubbing or cyanosis. Edema to BLE. Neurological:alert and oriented to person, place, and time. Assessment and plan: 1. Acute kidney injury. Likely related to bacteremia. IV antibiotics in place with infectious disease on board. Creatinine trending down. I agree with your care. No changes are required. If we can help, please call. 2. Hyponatremia. Zoloft stopped yesterday. Sodium stable. Fluid restrictions is place. We will stay the course. 3. Blood pressure. Stable. 4. Acid base balance. Improving. 5. Volume status. Expanded. On lasix. 6. Anemia. Low but stable. 7.Nutrition. Supplements is place. 8. Medication review. No changes.
[2019-03-08] MEDS: MERREM 2 GM in NS 100 ML IV SCH (20:33)
--- NOTE | 2019-03-08 20:39 | PROGRESS NOTE ---
DATE: 03/08/2019 INTERVAL HISTORY: No acute events overnight. Ms. Montoya's vitals have been largely within acceptable range. Her family is at bedside. I discussed with them about ESBL E coli sepsis and getting a CT scan. I also discussed with them about the abnormal troponins with a normal echocardiogram. SUBJECTIVE: Ms. Montoya states she has been occasionally coughing and making sputum. Chest x-ray performed yesterday had pulmonary vascular congestion and atelectasis without any infiltrate. The patient denies any chest pain, shortness of breath, nausea, vomiting, or abdominal pain. VITALS: Temperature 99, pulse 80 respiratory 20, blood pressure 103/62, saturating 98% on room air. PHYSICAL EXAMINATION: General: Not in acute distress. HEENT: Oral cavity is moist. Lungs: Air entry bilaterally equal. No wheeze, rhonchi or crackles Cardiovascular: S1 and S2 normal. Regular. No murmur or gallop. Abdomen: Soft, nontender. No lower extremity edema. Genitourinary: She has a Avila catheter. Neurologic: She is alert and oriented x3. LABS: Suggestive of normalization of WBC count, normocytic anemia, normal platelet count. Her sodium chloride levels have improved. She does appear to have chronic kidney disease stage 3B to stage 4. Microbiology: Urine culture has not shown any growth. Blood culture is positive. Repeat blood cultures have been ordered for tomorrow. ASSESSMENT AND PLAN: 1. Extended-spectrum beta lactamase Escherichia coli sepsis from likely acute cystitis. Continue intravenous meropenem as per Infectious Disease's recommendation. Follow up CT scan of the abdomen and pelvis to rule out nephrolithiasis or acute pyelonephritis which could be contributing to her recurrent extended-spectrum beta lactamase sepsis. Follow up repeat blood cultures. 2. Acute kidney injury on chronic kidney disease stage 3, now appears to be stable. Continue to closely monitor basic metabolic panel. I will follow up with a CT scan of the abdomen and pelvis. 3. Hyponatremia with low urine osmolality and urine sodium of more than 40. She was given intravenous Lasix yesterday, following which her urine serum sodium improved. I will continue to hold Zoloft. 4. Other. Continue gabapentin for peripheral neuropathy, [place] for chronic pain, and aripiprazole, which is her home medication. Her echocardiogram was normal despite elevated troponins. She was advised to have outpatient regular physician followup. DISPOSITION: Will monitor patient on medical floor. Plan of care discussed with the patient and her family at bedside. Their questions have been satisfactorily addressed and answered. cc: Ayaz Lorenzana MD
--- NOTE | 2019-03-09 07:14 | Diag Imaging Result Doc PS360 ---
EXAM: CT ABDOMEN/PELVIS W/O CONTRAST 03/08/2019 HISTORY: Evaluate for acute pyelonephritis/Nephrolith. TECHNIQUE: This exam was performed using automated exposure control, adjustment of mA or kV according to patient size, and/or use of iterative reconstruction technique. COMMENT: There are no previous abdominal studies available for comparison. Comparison is made with the previous thoracic study of 01/19/2019 where possible. There are coarse opacities present in both lower lobes particularly the left lower lobe. This is worse than on the previous examination. There is a fairly large hiatal hernia. The possibility of aspiration should be considered. There is a well-circumscribed lucent lesion in the liver in the right lobe measuring 2.1 cm in diameter. This was also present at the time of the previous study and has a CT density of less than 8 Hounsfield units. There has been cholecystectomy. There are some calcified granulomata in the spleen. Spleen is enlarged measuring over 15.4 cm in AP dimension. Compared to the previous examination this has increased from 14 cm. There is no evidence of nephrolithiasis or hydronephrosis. There is an 11 mm node in the left periaortic region. There is a Avila catheter in the bladder. There are phleboliths in the pelvis but no evidence of ureterolithiasis is present. There is a moderately large amount of stool present in the right colon. The appendix is surgically absent by history. There is diverticulosis in the left colon without evidence of diverticulitis. The small bowel is not distended. There is no evidence of free fluid. There are spondylotic changes in the lumbar spine particularly at L4-5 and L5-S1. IMPRESSION: 1. Worsened bibasilar atelectasis and/or pneumonia. 2. No evidence of urolithiasis or obstructive uropathy. 3. The possibility of pyelonephritis and urinary tract infection cannot be excluded on the basis of this noncontrast study. Other nonacute findings as described above. Electronically signed by Shyam Gant 03/09/2019 7:12 AM
[2019-03-09] MEDS: NON-FORMULARY BULK MED INH SCH (09:00)
[2019-03-09] MEDS: ABILIFY PO SCH (09:34)
[2019-03-09] MEDS: COLACE PO SCH ×2 (09:34→20:53)
[2019-03-09] MEDS: SINGULAIR PO SCH (09:34)
[2019-03-09] MEDS: MIRALAX PO SCH (09:34)
[2019-03-09] MEDS: MERREM 2 GM in NS 100 ML IV SCH ×2 (09:34→20:53)
[2019-03-09] MEDS: HEPARIN SUBQ SCH ×2 (09:34→20:53)
[2019-03-09 09:35] LABS: ALBUMIN 2.6 g/dL (3.5-5.0); CREATININE 1.2 mg/dL (0.5-0.9); PHOSPHORUS 4.4 mg/dL (2.7-4.5); POTASSIUM 4.3 mmol/L (3.5-5.1)
[2019-03-09] MEDS: NEURONTIN PO SCH ×3 (09:58→20:54)
[2019-03-09] MEDS: DULCOLAX PR SCH ×2 (16:52→20:54)
--- NOTE | 2019-03-09 19:11 | INFECTIOUS DISEASE PROGRESS NO ---
DATE: 03/09/2019 PRESENT ILLNESS: The patient has an extended-spectrum beta lactamase producing E coli urinary tract infection and an associated bacteremia. MEDICATIONS: The patient is on meropenem, with the dose being adjusted because of the patient's end-stage renal disease. Day 1 of treatment will be the first day that the patient's repeat blood cultures are sterile. PHYSICAL EXAMINATION: Vital Signs: Temperature is 98.5 degrees, pulse 85, respirations 20, blood pressure 96/55. General: This is an ill-appearing, elderly female. She is in no acute distress. Head/eyes/ears/nose/throat: She can hear my spoken words and see near objects. She does not have any white coating of her tongue. Neck: No pain with movement. Lungs: Clear to auscultation. Cardiovascular: Heart rate is regular. Abdomen: Soft and nontender. Neurologic: The patient is alert. She can move her extremities. There is no tremor. She has been able to ambulate. LAB AND X-RAY: CT scan of the abdomen and pelvis shows worsening bibasilar atelectasis/pneumonia. Also, the CT showed possible pyelonephritis. Initially, urine and blood cultures grew an extended- spectrum beta lactamase producing E coli. The repeat urine culture is negative. The repeat blood cultures are pending. Renal ultrasound was normal. Postvoid residual urine was 55 mL. ASSESSMENT AND PLAN: The patient has an Escherichia coli extended-spectrum beta lactamase producing urinary tract infection with an associated bacteremia. The patient was treated for this a few weeks ago with ertapenem, but it recurred. The plan now is to treat with meropenem, which may have more activity against the Escherichia coli than ertapenem. I would plan on treating the patient with IV meropenem from 4 to 6 weeks. COMORBIDITIES: The patient is elderly. She has asthma, chronic obstructive pulmonary disease, and gastroesophageal reflux disease. cc: Kyle Alvarez MD
--- NOTE | 2019-03-09 19:18 | PROGRESS NOTE ---
DATE: 03/09/2019 INTERVAL HISTORY: Ms. Montoya got CT scan of the abdomen and pelvis yesterday, which had detected constipation without any nephrolithiasis or pyelonephritis. Her urine output has been improving, and her kidney function has been improving as well. Ms. Montoya, however, has been complaining of cough, and I discussed with her about pneumonia presentation on CAT scan. We also discussed about getting the sputum culture. We discussed about moving with nursing assistance. OBJECTIVE: Vital signs: Temperature 99.5 degrees, pulse 89, respiratory rate 20, blood pressure 124/64, saturating 98% on 2 L nasal cannula. General: Not in acute distress. Oral cavity is moist. Lungs: Air entry bilaterally equal. No wheeze or rhonchi. Mild crackles in infrascapular region. S1, S2 normal. No murmur, rub or gallop. Abdomen: Soft, nontender. Active bowel sounds. Extremities: No lower extremity edema. Genitourinary: She has a Avila catheter, which I placed order to be removed. She is alert and oriented x3. LABORATORY DATA: No CBC today. BMP suggestive of improving sodium level, improving chloride level, normal anion gap. Her BUN and creatinine have been improving. MICROBIOLOGY: Repeat blood cultures have been drawn. Abdomen and pelvis CT performed yesterday had worsening bibasilar atelectasis and pneumonia, no evidence of urolithiasis or obstructive uropathy, possibility of pyelonephritis and urinary tract infection cannot be excluded on the basis of this noncontrast study and other nonacute findings, and I had a discussion about this CT scan in detail with the patient. ASSESSMENT AND PLAN: 1. Extended spectrum beta-lactamase Escherichia coli sepsis from acute cystitis. Continue intravenous meropenem. Follow up repeat blood culture results. CT scan of the abdomen and pelvis was unremarkable. Acute kidney injury on likely chronic kidney disease stage 3, now appears to be stable. Continue close input and output monitoring. Previously she had ESBL sepsis, which could have affected her kidney function and could have contributed to chronic kidney disease. I will continue monitor BMP. 2. Hyponatremia, now improving. I will continue to hold her Zoloft. Volume expansion related to intravenous fluid could have contributed to it, and she responded to Lasix. 3. Others: Continue gabapentin for peripheral neuropathy; [place] for chronic pain; aripiprazole is her home medication. She had elevated troponin on presentation, which was thought to be in the setting of her sepsis as well as acute kidney dysfunction with normal ejection fraction. DISPOSITION: Awaiting final blood culture results. Eventually she will be discharged home. Plan of care discussed with the patient. Her questions have been answered. Bilateral lower lobe pneumonia. She also has a large hiatal hernia. She denies any gastric reflux symptoms. I ordered aspiration precautions. I advised her to sit upright while eating and have outpatient followup. She agreed. Her intravenous meropenem should take care of pneumonia as well. cc: Ayaz Lorenzana MD
[2019-03-09] MEDS: DUONEB (A & A) INH PRN (20:41)
[2019-03-10 07:38] LABS: BASO# 0.01 X1000 (0.0-0.2); BASO% 0.2 % (0.0-0.8); EOS# 0.12 X1000 (0.0-0.7); EOS% 2.8 % (0.0-10.0); HEMATOCRIT 32.5 % (37.0-47.0); HEMOGLOBIN 10.4 g/dL (12.0-16.0); IMM GRAN% 2.4 % (0.0-0.5); LYMPH# 1.26 X1000 (1.2-3.4); LYMPH% 29.6 % (20.5-51.1); MCH 28.9 PG (27-31); MCV 90.3 FL (81-99); MONO# 0.62 X1000 (0.11-0.59); MONO% 14.6 % (1.7-9.3); MPV 10.4 FL (7.4-10.4); NEUT# 2.14 X1000 (1.4-6.5); NEUT% 50.4 % (42.2-75.2); PLT 228 X1000 (130-400); RDW 14.4 % (11.5-14.5); WBC 4.25 X1000 (4.8-10.8)
[2019-03-10 07:44] LABS: POTASSIUM 4.3 mmol/L (3.5-5.1)
[2019-03-10] MEDS: DUONEB (A & A) INH PRN ×3 (08:17→19:52)
[2019-03-10] MEDS: MIRALAX PO SCH (09:27)
[2019-03-10] MEDS: SINGULAIR PO SCH (09:27)
[2019-03-10] MEDS: MERREM 2 GM in NS 100 ML IV SCH ×2 (09:27→17:33)
[2019-03-10] MEDS: DULCOLAX PR SCH ×2 (09:28→20:13)
[2019-03-10] MEDS: COLACE PO SCH ×2 (09:28→20:10)
[2019-03-10] MEDS: NEURONTIN PO SCH ×3 (09:28→17:33)
[2019-03-10] MEDS: HEPARIN SUBQ SCH ×2 (09:28→20:10)
[2019-03-10] MEDS: NON-FORMULARY BULK MED INH SCH (09:32)
[2019-03-10] MEDS: BIDEX PO SCH (20:10)
[2019-03-10] MEDS: MAGNESIUM SULFATE 2 GM/S.W.I. 2 GM/50 ML IVPB IV SCH (20:31)
--- NOTE | 2019-03-10 20:44 | PROGRESS NOTE ---
DATE: 03/10/2019 INTERVAL HISTORY: No acute events overnight. Her blood culture final report has not been back. Ms. Montoya has been complaining of cough. Unfortunately, sputum culture has not been collected. She is feeling a little bloated, but she did have a bowel movement yesterday. She denies chest pain or shortness of breath. She is occasionally making sputum. She denies nausea, vomiting or abdominal pain. OBJECTIVE: Vital signs: Temperature 98.5 degrees, pulse 80, respiratory rate 18, blood pressure 95/52, saturating 99% on 2 L nasal cannula. On physical examination, not in acute distress. Oral cavity is moist. Air entry bilaterally equal. No wheeze or rhonchi. Mild crackles in infrascapular region. S1, S2 normal, regular. No murmur, gallop or rub. Abdomen is soft, nontender. No lower extremity edema. She is alert and oriented x3. I discussed with her, she states she is able to come out of bed and move around without anyone's help. LABORATORY DATA: Labs suggestive of WBC of 4.2, hemoglobin of 10.4, platelets of 228,000. She does have improvement in her kidney function and normal electrolytes. Her magnesium was 1.5, which is currently being replenished. ASSESSMENT AND PLAN: 1. Extended-spectrum beta-lactamase Escherichia coli sepsis from acute cystitis. Continue intravenous meropenem. Follow up final blood culture results. I will anticipate peripherally inserted central catheter line placement tomorrow, with home discharge. 2. Acute kidney injury, could be in the setting of extended-spectrum beta-lactamase bacteremia on presentation, now improving after intravenous fluids. I will continue to monitor her BMP. 3. Hyponatremia, improved. She responded to Lasix. 4. Others: Continue gabapentin for peripheral neuropathy; [place] for chronic pain; her elevated troponin was likely in the setting of acute kidney injury, as her echocardiogram had normal ejection fraction. 5. Bilateral lower lobe pneumonia with a hiatal hernia. I counseled her about aspiration precautions. We will also get a sputum culture. She is already on intravenous meropenem. 6. Disposition: Likely discharge in the next 24 to 48 hours to home. She is in agreement. cc: Ayaz Lorenzana MD
[2019-03-11] MEDS: MAGNESIUM SULFATE 2 GM/S.W.I. 2 GM/50 ML IVPB IV SCH (00:09)
[2019-03-11] MEDS: MERREM 2 GM in NS 100 ML IV SCH ×2 (02:35→10:19)
[2019-03-11 07:39] LABS: INR 1.02; PROTIME 13.5 Seconds (11.0-16.0)
[2019-03-11 07:40] LABS: PTT 31.5 Seconds (22.3-41.8)
[2019-03-11] MEDS: HEPARIN SUBQ SCH (10:19)
[2019-03-11] MEDS: BIDEX PO SCH (10:20)
[2019-03-11] MEDS: COLACE PO SCH ×2 (10:20→10:31)
[2019-03-11] MEDS: SINGULAIR PO SCH (10:20)
[2019-03-11] MEDS: MIRALAX PO SCH (10:20)
[2019-03-11] MEDS: DULCOLAX PR SCH (10:20)
[2019-03-11] MEDS: ABILIFY PO SCH (10:20)
[2019-03-11] MEDS: NEURONTIN PO SCH ×2 (10:24→14:25)
[2019-03-11] MEDS ORDERED: NS 250 ML ONE (10:42)
[2019-03-11] MEDS ORDERED: MYCOSTATIN SUSP PO SCH (13:00)
[2019-03-11 15:35] VITALS: BP 123/69
--- NOTE | 2019-03-11 18:30 | INFECTIOUS DISEASE PROGRESS NO ---
DATE: 03/11/2019 PRESENT ILLNESS: Ms. Montoya has an extended-spectrum [id number]-[id number] Escherichia coli urinary tract infection with an associated bacteremia. MEDICATIONS: Based on her sterile blood cultures, today is day 2 of treatment with meropenem 2 g IV every 8 hours. PHYSICAL EXAM: Vital signs: Temperature is 98.4 degrees, pulse rate 90, respiratory rate 15, blood pressure 109/54. O2 saturation is 94% on room air. Generally this is an elderly, somewhat ill- appearing female. She is lying in the bed, currently in no acute distress.HEENT: Atraumatic, normocephalic. Oral mucous membranes are pink and moist. Neck is supple. Trachea is midline. Cardiovascular: Heart rate is regular. S1, S2 noted. Respiratory: Lung sounds are bilaterally clear to auscultation in the upper lobes, diminished in the bases. Abdomen is soft, round and nondistended, nontender. Bowel sounds are active. Integumentary: Skin is warm and dry. There is a PICC line in place to the left upper arm. That site is without edema, erythema or drainage. Neurologic: She is awake, alert, oriented and able to move around the room with assistance. LABS AND IMAGING: None available today; however, yesterday her white count was 4.25, hemoglobin 10.4, platelet count 228,000. Creatinine 1 with a GFR of 55. No imaging reports today. ASSESSMENT AND PLAN: Ms. Montoya is being treated for an extended-spectrum zrht-eyfgycskn-pwtdodjco Escherichia coli urinary tract infection with an associated bacteremia. She has previously been treated for the same using ertapenem; however, she did have a recurrence of the same bacteria with a bacteremia. We plan on continuing her meropenem for a total of 4-6 weeks. We have told her to call our office on Thursday to make an appointment in 3 weeks, at which time we will re-evaluate her condition. At this point she is on day 2 of her of her treatment, which will require 14 days for the bacteremia; however, we may want to go as long as 6 weeks in order to eliminate the extended-spectrum beta-lactamase Escherichia coli in her urine, since she has had recurrence. These plans have been discussed with and recommended by Dr. Alvarez. COMORBIDITIES: for Ms. Montoya include that she is elderly, with asthma, chronic obstructive pulmonary disease, gastroesophageal reflux disease and gout. Dictated by COURTNEY Mitchell for Kyle Alvarez MD cc: Kyle Alvarez MD [facility]
--- NOTE | 2019-03-12 13:35 | DISCHARGE SUMMARY ---
ADMISSION DATE: 03/05/2019 DISCHARGE DATE: 03/11/2019 DISCHARGE DISPOSITION: Home with a PICC line with home antibiotic therapy. DISCHARGE CONDITION: Hemodynamically stable. She denies any nausea, vomiting, abdominal pain, chest pain or shortness of breath. She is occasionally coughing though sputum culture does not have any growth on the preliminary report. In any case, she will be on intravenous meropenem at the time of discharge. DISCHARGE DIAGNOSES: 1. Extended spectrum beta-lactamase sepsis from acute cystitis without hematuria. 2. Acute kidney injury likely in the setting of extended spectrum beta-lactamase sepsis, which improved. 3. Hyponatremia. 4. Bilateral lower lobe pneumonia with suspicion of aspiration. 5. Large hiatal hernia. 6. Intravascular volume depletion due to nausea and vomiting. 7. Hypokalemia. 8. Elevated troponin in the setting of acute kidney injury. OTHER DIAGNOSES: 1. History of essential hypertension. 2. History of asthma and chronic obstructive pulmonary disease. 3. History of extended spectrum beta-lactamase urinary tract infection in late December or early January 2019 due to extended spectrum beta-lactamase Escherichia coli. DISCHARGE MEDICATIONS: 1. Atorvastatin 80 mg at nighttime. 2. Aripiprazole 2 mg every other day. 3. Allopurinol 300 mg daily 2 tablets. 4. Meclizine 25 mg every 8 hours. 5. Guaifenesin phenylephrine acetaminophen tablet 1 tablet every 6 hours as needed. 6. Celecoxib 200 mg daily. 7. Alendronate 70 mg tablet most likely weekly. It was not reconciled properly. 8. Furosemide 20 mg daily as needed. 9. Gabapentin 400 mg t.i.d. 10. Potassium 10 mEq daily. 11. Sertraline 100 mg daily. 12. Montelukast 10 mg daily. 13. Theophylline 200 mg daily. 14. Trelegy Ellipta 1 puff inhaled daily 162.5/25 mcg. 15. [place] 7.5 one tablet every 6 hours as needed. 16. Intravenous meropenem 2 g IV q.8 hours as per Infectious Disease recommendation. VITALS: At time of discharge, temperature 98.4 degrees, pulse 90, respiratory rate 15, blood pressure 109/54. Saturating 94% on room air. PHYSICAL EXAMINATION: Not in acute distress. HEENT: Oral cavity is moist. Lungs: Air entry bilaterally equal. No wheeze or rhonchi. Mild inspiratory crackles. Cardiovascular: S1, S2 normal. Regular. No murmur or gallop. Abdomen: Soft, nontender. Extremity: No lower extremity edema. Neurologic: She is alert and oriented x3. SIGNIFICANT LABS: During hospital admission and discharge, WBC is 4.2, which improved from 13,000 on presentation, hemoglobin 10.4, platelet 228,000. Sodium is 133, which improved from 128 on presentation, chloride 95, BUN 21 and creatinine of 1, which improved from 2.1 on the time of presentation. Her cortisol level was 33. MICROBIOLOGY: Blood culture and urine culture drawn on March 05 were growing ESBL positive E. coli. Blood culture drawn on March 09 did not have any growth for 48 hours. Sputum culture did not have any growth. Urine culture did not have any growth on March 06, though the urine culture on March 05 had ESBL E. coli. SIGNIFICANT IMAGING: During hospital admission, chest x-ray on presentation did not have any evidence of acute disease. Echocardiogram had ejection fraction of 65% with mild left ventricular hypertrophy. Chest x-ray on March 06 and on March 07 had some atelectasis at the lung bases. Abdomen and pelvis CT on March 08 had worsened bibasilar atelectasis or pneumonia without any evidence of urolithiasis or obstructive uropathy. The possibility of pyelonephritis and urinary tract infection could not be excluded on the basis of noncontrast study. Electrocardiogram on March 05 had normal sinus rhythm, left axis deviation. HOSPITAL COURSE SUMMARY: Ms. Montoya is a 68-year-old lady who was initially admitted in late December, early January 2019 for sepsis and syncope event and at that time was found to have ESBL E. coli urinary tract infection leading to ESBL E. coli sepsis in blood. She was treated with intravenous fluids, intravenous antibiotics and then was discharged on intravenous ertapenem to rehab. The patient was discharged out of rehab about 2 weeks before current presentation and she was doing fine; however, about a week prior to current presentation, the patient started feeling weak and she was not able to walk. She also had nausea, vomiting, and chills and she started feeling unwell, so she was brought to the emergency room. In the emergency room, she was found to have sepsis with temperature of 100.5 degrees, WBC count of 13,000 so she was admitted for further management. She also was found to have acute kidney injury. So, intravenous fluid resuscitation and intravenous antibiotics were started. She was found to have ESBL E. coli urinary tract infection as well as ESBL E. coli in her blood and her antibiotics were changed to intravenous meropenem this time. CT scan of the abdomen and pelvis did not have definitive pyelonephritis or nephrolithiasis on noncontrast study. With intravenous meropenem her condition improved and her blood cultures turned negative. She will be discharged on intravenous meropenem this time through PICC line. At the time of discharge detailed discharge instructions were provided to the patient. All of her questions were answered. More than 30 minute spent in this patient's discharge summary. cc: Ayaz Lorenzana MD MTDD
== END 2019-03-11 17:28 | disposition home health service (06) | DRG 871 ==
LOC: ED 13:11 → SUATTDRO 18:06 → EDIPHOLD 18:06 → 3N 21:51
PROVIDERS: ATTEND Internal Medicine